=== PATIENT | male | born 1965 | race Caucasian/White ===

== ENCOUNTER 2024-02-13 14:50 | Outpatient (AMB) | payer BC, SELFPAY ==
--- NOTE | 2024-02-13 15:09 | MHC.PC.OV ---
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 Transferring care from [place] ([place]). Medical records have been requested and have not received. 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 HPI Details Patient comes in today to establish care - is a new patient to the practice States that he is transferring over from [place] Patient relates feeling fatigued often lately He denies any headaches or dizziness Relates on and off/sporadic and non-specific chest pains often although he denies any exertional chest pains States that his chest feels congested often and he has been experiencing frequent VILLANUEVA ever since he contracted COVID a few years ago (+) on and off cough; states that he coughs up a lot of whitish phlegm often but his cough does not keep him up at night He used to smoke but quit over 10 years ago No nausea/vomiting, no abdominal pain No change in bowel habits noted He denies any acute urinary symptoms States that he was seen by vascular surgery in [place] for his leg edema and was advised to wear compression stockings to help reduce his lower extremity swelling He's had no recent labs done - thinks that the last time he had labs done was before the COVID pandemic a few years ago He had his screening colonoscopy done back in 2014 and is now due for repeat colonoscopy [facility] Medical History (Updated 02/20/24 @ 04:51 by Karlos Goznales MD) GERD without esophagitis Morbid obesity with BMI of 40.0-44.9, adult Exertional dyspnea Surgical History (Updated 02/13/24 @ 15:51 by Karlos Gonzales MD) Hx of colonoscopy History of release of tendon Family History Sister Substance use disorder Social History Housing: House Alcohol intake: current Alcohol intake frequency: a few times a month Patient Tobacco Use Status: Never used Tobacco e-Cigarette/Vaping Use: Never Used Second Hand Smoke Exposure: No service: No Current occupational status: employed 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 1. Little interest or pleasure in doing things: not at all 2. Feeling down, depressed, or hopeless: not at all 3. Trouble falling or staying asleep, or sleeping too much: not at all 4. Feeling tired or having little energy: not at all 5. Poor appetite or overeating: not at all 6. Feeling bad about yourself - or that you are a failure or have let yourself or your family down: not at all 7. Trouble concentrating on things, such as reading the newspaper or watching television: not at all 8. Moving or speaking so slowly that other people could have noticed. Or the opposite - being so fidgety or restless that you have been moving around a lot more than usual: not at all 9. Thoughts that you would be better off or of hurting yourself in some way: not at all Total score: 0 Depression Screening Interpretation: Negative Depression Screening Done: Yes 38025 - PHQ-9 Billing: Yes Source: Developed by Drs. Aj Galdamez, Mohini Gray, Daniel Madrid and colleagues, with an educational matt from [employer]. Thrive Questionnaire Date Thrive assessed: 02/13/24 I am a: Patient What is your living situation today?: I have a steady place to live Within the past 12 months, did the food you bought not last and you didn't have the money to get more?: Never true Within the past 12 months, did you worry whether your food would run out before you got money to buy more?: Never true Do you have trouble paying for medicines?: No Do you have trouble getting transportation to medical appointments?: No Do you have trouble paying your heating and electricity bill?: Yes Do you have trouble taking care of your child, family member or friend?: No Do you have trouble with day-to-day activities such as bathing, preparing meals, shopping, managing finances, etc.?: No Are you currently unemployed and looking for a job?: No Are you interested in more education?: No Currently or been in a relationship where the following occur: No concerns reported THRIVE Score: 1 AUDIT C Alcohol Use Questionnaire (AUDIT-C) 1. How often do you have a drink containing alcohol?: 2-4 times a month 3. How often do you have six or more drinks on one occasion?: Never Total Score: 2 Score Reviewed/Action Taken: Yes CAROL ANN-7 AMB Questionnaire CAROL ANN-7 Date CAROL ANN - 7 assessed: 02/13/24 Feeling nervous, anxious, or on edge: 0 = Not at all Not being able to stop or control worryin = Not at all Worrying too much about different things: 0 = Not at all Trouble relaxin = Not at all Being so restless that it is hard to sit still: 0 = Not at all Becoming easily annoyed or irritable: 0 = Not at all Feeling afraid as if something awful might happen: 0 = Not at all Total CAROL ANN-7 score (0-4 normal; 5-9 mild; 10-14 moderate; 15-21 severe): 0 Source: Developed by Drs. Aj Galdamez, Mohini Gray, Daniel Madrid and colleagues, with an educational matt from [employer]. Review of Systems Const Denies chills, Reports fatigue, Denies fever(s), Denies headache(s), Denies malaise and Denies weakness Eyes Denies blurry vision, Denies change in vision, Denies irritation and Denies itchy eyes ENT Denies dysphagia, Denies dizziness, Denies otalgia, Denies headache(s), Denies nasal congestion, Denies neck pain, Denies odynophagia and Denies sore throat Card Reports chest pain (on and off), Denies chest pain with activity, Denies rapid heart rate, Denies irregular heart rhythm, Denies palpitations and Reports dyspnea on exertion Resp Denies chest congestion, Reports cough (on and off, coughs up thick whitish phlegm often), Reports dyspnea on exertion and Denies wheezing GI Denies abdominal pain, Denies bloating, Denies constipation, Denies dysphagia, Denies heartburn, Denies diarrhea, Denies nausea, Denies odynophagia and Denies vomiting Denies hematuria, Denies difficulty urinating, Denies dysuria, Denies urinary frequency and Denies urinary urgency Musc Denies back pain, Reports arthralgias (involving multiple joints), Denies joint swelling, Denies muscle weakness and Denies neck pain Skin/Breast Denies change in pigmentation, Denies lesions, Denies rash and Denies unusual bruising Neuro Denies dizziness, Denies headache(s), Denies paresthesias and Denies weakness Endo Reports fatigue and Denies palpitations Rob/Lymph Details: (+) chronic edema of both lower extremities Aller/Immun Denies itchy eyes and Denies wheezing Physical exam (Primary Care) Vital Signs: Last Vital Signs Pulse 79 02/13/24 15:10 BP 138/80 02/13/24 15:10 Pulse Ox 98 02/13/24 15:10 Oxygen Delivery Method Room Air 02/13/24 15:10 BMI result Body Mass Index 40.1 Tobacco/Smoking Status: Tobacco use Status Tobacco use date assessed 02/13/24 02/13/24 15:21 Patient Tobacco Use Status Never used Tobacco 02/13/24 15:21 e-Cigarette/Vaping Use Never Used 02/13/24 15:21 PHQ-9: PHQ-9 Score PHQ-9: Total score 0 02/13/24 15:42 Depression Screening Interpretation: Negative Thrive Assessment: Date of Thrive Assessment Date Thrive assessed 02/13/24 02/13/24 15:21 Currently or been in a relationship where the following occur: No concerns reported Const General: no acute distress, alert and awake Orientation/consciousness: patient oriented x3 HENMT Head: Yes normocephalic and Yes atraumatic Ears: external ears normal, TM's normal bilaterally and EAC's normal General nose exam: No nasal discharge present Face and sinus: Yes normal facial exam and Yes sinuses nontender Teeth and gingiva: dentition normal Throat: Yes posterior oropharynx normal and Yes tonsils normal (no TP congestion) Eyes Eyelids: Yes eyelids normal Conjunctivae: conjunctivae normal Pupils: Equal, round and reactive pupils present EOM: EOMs intact bilaterally Neck Neck: Yes no lymphadenopathy and Yes supple Thyroid: Thyroid normal Resp Auscultation: clear to auscultation bilaterally, no rales, rhonchi (occasional bilaterally) and no wheezes Cardio Rate: regular rate Rhythm: regular rhythm Heart sounds: no murmurs GI Palpation (GI): Soft to palpation, nontender and No hepatosplenomegaly present Auscultation: normal bowel sounds General: Yes no CVA tenderness Back/Spine/Pelvis Back: no CVA tenderness Thoracic/Lumbar Spine: thoracic and lumbar spine normal to inspection Skin Lesions: no lesions Rashes: no rashes Neuro General: patient oriented x3, moves all extremities, no focal motor deficits and CN's II-XI intact bilaterally Cranial nerves: Yes Equal, round and reactive pupils present Cognition (Neuro): normal cognition Gait exam (Neuro): Normal gait present Extrem General: No clubbing, No cyanosis and Yes edema (2+ bilaterally) Assessment and Plan Assessment & Plan (1) Annual physical exam: Code(s): Z00.00 - Encounter for general adult medical examination without abnormal findings Plan: Check labs He is due for repeat colonoscopy but states that he would like to put this off for now and will address this again at his next appointment (2) Exertional dyspnea: Code(s): R06.09 - Other forms of dyspnea Plan: Will send patient for chest x-rays for further evaluation (3) Bilateral lower extremity edema: Code(s): R60.0 - Localized edema Plan: He has reportedly been evaluated by vascular surgery and advised to wear compression stockings to help manage his edema (4) GERD without esophagitis: Code(s): K21.9 - Gastro-esophageal reflux disease without esophagitis Plan: Dietary restrictions discussed Will start patient on Omeprazole 20 mg QD (5) Morbid obesity with BMI of 40.0-44.9, adult: Code(s): E66.01 - Morbid (severe) obesity due to excess calories; Z68.41 - Body mass index [BMI] 40.0-44.9, adult Plan: Discussed diet/exercise as tolerated/lose weight Plan Follow up in 4 months Orders: Orders Lipid Panel 02/13/24 E78.00 - Pure hypercholesterolemia, unspecified, Z00.00 - Encounter for general adult medical examination without abnormal findings Prostate Specific Antigen 02/13/24 N40.0 - Benign prostatic hyperplasia without lower urinary tract symptoms, Z00.00 - Encounter for general adult medical examination without abnormal findings XR chest 2V 02/13/24 R06.09 - Other forms of dyspnea, R09.89 - Other specified symptoms and signs involving the circulatory and respiratory systems Complete Blood Count Auto Diff 02/13/24 D64.9 - Anemia, unspecified, Z00.00 - Encounter for general adult medical examination without abnormal findings Comprehensive [place]. Panel Fast 02/13/24 E78.00 - Pure hypercholesterolemia, unspecified, Z00.00 - Encounter for general adult medical examination without abnormal findings TSH reflex Free T4 02/13/24 E78.00 - Pure hypercholesterolemia, unspecified, Z00.00 - Encounter for general adult medical examination without abnormal findings UA CC w/rflx Micro + Cult 02/13/24 R30.0 - Dysuria, Z00.00 - Encounter for general adult medical examination without abnormal findings Hemoglobin A1c 02/13/24 E11.9 - Type 2 diabetes mellitus without complications, Z00.00 - Encounter for general adult medical examination without abnormal findings Medications: New omeprazole 20 mg PO DAILY 90 tabs 1RF 90 days Coding Level of Care Code New Pt Prev Care 40-64y(21891) Diagnoses Annual physical exam Z00.00 Exertional dyspnea R06.09 Bilateral lower extremity edema R60.0 GERD without esophagitis K21.9 Morbid obesity with BMI of 40.0-44.9, adult E66.01; Z68.41
[2024-02-13 15:10] VITALS: BP 138/80; PULSE 79; O2SAT 98; BMI 40.1
== END 2024-02-13 15:56 | disposition home or self-care (01) ==
PROVIDERS: PCP Internal Medicine; Visit Provider Internal Medicine
DX: Z00.00 Encounter for general adult medical examination without abnormal findings (principal); R06.09 Other forms of dyspnea; R60.0 Localized edema; K21.9 Gastro-esophageal reflux disease without esophagitis
CPT/HCPCS: 99386

== ENCOUNTER 2024-03-05 13:03 | Outpatient (REF) | payer BC, SELFPAY ==
--- NOTE | ~2024-03-05 | XR_ITS ---
EXAMINATION: XR CHEST 2 VIEWS CLINICAL INFORMATION: Excess mucus production. COMPARISON: None. TECHNIQUE: Frontal and lateral views of the chest were obtained. FINDINGS: The heart, great vessels, pulmonary vasculature and mediastinum are normal. The lungs show no focal infiltrate, effusion or pneumothorax. There is mild elevation of the right hemidiaphragm. There is no acute osseous abnormality. XR/XR chest 2V IMPRESSION: No active cardiopulmonary disease. Electronically signed by: Julius Davis MD 04/03/2024 05:31 PM EDT RP
== END 2024-03-05 13:04 | disposition home or self-care (01) ==
LOC: HO.XRAY 13:03
PROVIDERS: PCP Internal Medicine; Visit Provider Internal Medicine
DX: R09.89 Other specified symptoms and signs involving the circulatory and respiratory systems (principal); R06.09 Other forms of dyspnea
CPT/HCPCS: 71046

== ENCOUNTER 2024-03-08 10:28 | Outpatient (REF) | payer BC, SELFPAY ==
[2024-03-08 10:44] LABS: MANUAL DIFF FLAG NO
[2024-03-08 11:47] LABS: Basophils Percent Auto 0.4 % (0-2); Eosinophils Absolute Auto 0.1 X10*3/uL (0.0-0.4); Eosinophils Percent Auto 1.2 % (0-4); Hematocrit 44.2 % (42.0-52.0); Hemoglobin 15.9 g/dl (14.0-18.0); Imm Gran Abs Auto 0.02 X10*3/uL (0.00-0.03); Imm Gran Pct Auto 0.4 % (0.0-0.4); Lymphocytes Absolute Auto 2.3 X10*3/uL (1.2-4.9); Lymphocytes Percent Auto 43.5 % (20-40); Mean Corpuscular Hemoglobin 29.9 pg (27.0-33.0); Mean Corpuscular Volume 83.1 fL (80.0-98.0); Mean Platelet Volume 10.3 fL (9.4-12.4); Monocytes Absolute Auto 0.3 X10*3/uL (0.1-1.2); Monocytes Percent Auto 6.6 % (2-11); Neutrophils Absolute Auto 2.5 x10*3/uL (2.0-8.3); Neutrophils Percent Auto 47.9 % (45-73); Platelet Count 175 X10*3/uL (160-400); Red Blood Count 5.32 X10*6/uL (4.60-5.80); Red Cell Distribution Width 12.1 % (11.0-16.0); White Blood Count 5.2 X10*3/uL (4.8-10.8)
[2024-03-08 11:57] LABS: Appearance Urine Clear; Color Urine Yellow; Glucose Urine UA >=1000 mg/dL (Negative); Leukocyte Esterase Urine Negative (Negative); Nitrite Urine Negative (Negative); UMIC TRIGGER UACC YES; Urine Blood Negative (Negative); Urine Ketones Negative (Negative); Urine Protein Negative (Neg-Trace)
[2024-03-08 12:08] LABS: Estimated Average Glucose 263 mg/dL; Hemoglobin A1c % 10.8 % (<6.0)
[2024-03-08 12:16] LABS: Bacteria Urine None Seen (None Seen); Hyaline Casts Urine 0-2 /LPF (0-2); RBC Urine 0-2 /HPF (0-2); Squamous Epithelial Cell Urine 0-2 /HPF (0-2); WBC Urine 0-5 /HPF (0-5)
[2024-03-08 12:22] LABS: Alanine Aminotransferase 40 U/L (0-40); Albumin Level 3.9 g/dL (3.5-5.0); Alkaline Phosphatase 89 U/L (39-117); Anion Gap 12 (12-20); Aspartate Amino Transferase 24 U/L (5-37); Bilirubin Total 0.5 mg/dL (0.0-1.0); Blood Urea Nitrogen 10 mg/dL (9-16); Calcium 9.2 mg/dL (8.4-10.2); Carbon Dioxide 23 mmol/L (22-29); Chloride 101 mmol/L (96-108); Cholesterol 229 mg/dL (<200); Estimated Glomerular Filt Rate > 60; Glucose Fasting 275 mg/dL (60-99); HDL Cholesterol 35 mg/dL (>40); LDL Cholesterol Calculated 154 mg/dL (<100); Potassium 4.1 mmol/L (3.3-5.1); Sodium 132 mmol/L (135-145); Total Protein 6.7 g/dL (6.5-8.0); Triglycerides 203 mg/dL (<150)
[2024-03-08 12:33] LABS: Prostate Specific Antigen 0.22 ng/mL (<0.05-4.0)
[2024-03-08 12:36] LABS: TSH reflex Free T4 2.69 uIU/mL (0.32-4.0)
== END 2024-03-08 10:29 | disposition home or self-care (01) ==
LOC: HO.LAB 10:28
PROVIDERS: PCP Internal Medicine; Visit Provider Internal Medicine
DX: Z00.00 Encounter for general adult medical examination without abnormal findings (principal); D64.9 Anemia, unspecified; E78.00 Pure hypercholesterolemia, unspecified; N40.0 Benign prostatic hyperplasia without lower urinary tract symptoms; E11.9 Type 2 diabetes mellitus without complications; Z12.5 Encounter for screening for malignant neoplasm of prostate
CPT/HCPCS: 36415; 80053; 80061; 81001; 83036; 84153; 84443; 85025

== ENCOUNTER 2024-06-15 15:47 | Outpatient (AMB) | payer BC, SELFPAY ==
[2024-06-15 16:01] VITALS: BP 140/84; PULSE 88; O2SAT 9; BMI 40.0
--- NOTE | 2024-06-15 16:01 | A.OFFPC_ITS ---
Vital Signs 06/15/24 16:01 Height 5 ft 8.5 in Weight 267 lb 2 oz BMI 40.0 BP 140/84 H Blood Pressure Location Lt brachial Position Sitting Pulse 88 Pulse Source Pulse Oximeter Pulse Oximetry (%) 9 L Oxygen Delivery Method Room Air Intake Visit Reasons: [facility] f[facility]u Route Sales Manager Required: No Accompanied by: Self / Same As Patient Allergies No Known Allergies Allergy (Verified 06/15/24 16:07) Medication List - Last Reconciled 06/15/24 by Karlos Gonzales MD omeprazole 20 mg PO DAILY 90 days Tobacco use date assessed: 02/13/24 Dental Screening Dental Screen Date: 02/13/24 HPI 4mt f/u HPI Details Patient comes in today for his follow up visit States that he feels okay but continues to feel fatigued/tired often He denies any headaches or dizziness Denies any exertional chest pains or increased SOB No nausea//vomiting, no abdominal pain No change in bowel habits noted He would like to know how he did on his labs done a couple of months ago [facility] Medical History (Updated 06/16/24 @ 15:00 by Karlos Gonzales MD) Mixed hyperlipidemia Essential hypertension Diabetes mellitus GERD without esophagitis Morbid obesity with BMI of 40.0-44.9, adult Exertional dyspnea Surgical History Hx of colonoscopy History of release of tendon Family History Sister Substance use disorder Social History Housing: House Alcohol intake: current Alcohol intake frequency: a few times a month Patient Tobacco Use Status: Never used Tobacco e-Cigarette/Vaping Use: Never Used Second Hand Smoke Exposure: No service: No Current occupational status: employed 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 1. Little interest or pleasure in doing things: not at all 2. Feeling down, depressed, or hopeless: not at all 3. Trouble falling or staying asleep, or sleeping too much: not at all 4. Feeling tired or having little energy: not at all 5. Poor appetite or overeating: not at all 6. Feeling bad about yourself - or that you are a failure or have let yourself or your family down: not at all 7. Trouble concentrating on things, such as reading the newspaper or watching t elevision: not at all 8. Moving or speaking so slowly that other people could have noticed. Or the opposite - being so fidgety or restless that you have been moving around a lot more than usual: not at all 9. Thoughts that you would be better off or of hurting yourself in some way: not at all Total score: 0 Depression Screening Interpretation: Negative Depression Screening Done: Yes 89047 - PHQ-9 Billing: Yes Source: Developed by Drs. Aj Galdamez, Mohini Gray, Daniel Madrid and colleagues, with an educational matt from [employer] Thrive Questionnaire Date Thrive assessed: 06/15/24 I am a: Patient What is your living situation today?: I have a steady place to live Within the past 12 months, did the food you bought not last and you didn't have the money to get more?: Never true Within the past 12 months, did you worry whether your food would run out before you got money to buy more?: Never true Do you have trouble paying for medicines?: No Do you have trouble getting transportation to medical appointments?: No Do you have trouble paying your heating and electricity bill?: Yes Do you have trouble taking care of your child, family member or friend?: No Do you have trouble with day-to-day activities such as bathing, preparing meals, shopping, managing finances, etc.?: No Are you currently unemployed and looking for a job?: No Are you interested in more education?: No Currently or been in a relationship where the following occur: No concerns r eported THRIVE Score: 1 AUDIT C Alcohol Use Questionnaire (AUDIT-C) 1. How often do you have a drink containing alcohol?: Monthly or less 2. How many drinks containing alcohol do you have on a typical day when you are drinking?: 1 or 2 3. How often do you have six or more drinks on one occasion?: Less than monthly Total Score: 2 Score Reviewed/Action Taken: Yes CAROL ANN-7 AMB Questionnaire CAROL ANN-7 Date CAROL ANN - 7 assessed: 06/15/24 Feeling nervous, anxious, or on edge: 0 = Not at all Not being able to stop or control worryin = Not at all Worrying too much about different things: 0 = Not at all Trouble relaxin = Not at all Being so restless that it is hard to sit still: 0 = Not at all Becoming easily annoyed or irritable: 0 = Not at all Feeling afraid as if something awful might happen: 0 = Not at all Total CAROL ANN-7 score (0-4 normal; 5-9 mild; 10-14 moderate; 15-21 severe): 0 Source: Developed by Drs. Aj Galdamez, Mohini Gray, Daniel Madrid and colleagues, with an educational matt from [employer] CAROL ANN-7 Assessment Billing CAROL ANN-7 Assessment Tool: CAROL ANN-7 Assessment 72120 Review of Systems Const Denies chills, Reports fatigue, Denies fever(s) and Denies headache(s) ENT Denies dysphagia, Denies dizziness, Denies otalgia, Denies headache(s), Denies neck pain, Denies odynophagia and Denies sore throat Card Denies chest pain, Denies palpitations and Denies dyspnea Resp Denies chest congestion, Denies cough and Denies dyspnea GI Denies abdominal pain, Denies constipation, Denies dysphagia, Denies heartburn, Denies diarrhea, Denies nausea, Denies odynophagia and Denies vomiting Denies dysuria, Reports nocturia and Reports urinary frequency Musc Denies back pain and Denies neck pain Skin/Breast Denies rash Neuro Denies dizziness and Denies headache(s) Endo Reports fatigue, Reports polydipsia, Reports polyuria and Denies palpitations Physical exam (Primary Care) Vital Signs: Last Vital Signs Pulse 88 06/15/24 16:01 BP 140/84 H 06/15/24 16:01 Pulse Ox 9 L 06/15/24 16:01 Oxygen Delivery Method Room Air 06/15/24 16:01 BMI result Body Mass Index 40.0 Tobacco/Smoking Status: Tobacco use Status Tobacco use date assessed 02/13/24 06/15/24 16:02 Patient Tobacco Use Status Never used Tobacco 06/15/24 16:02 e-Cigarette/Vaping Use Never Used 06/15/24 16:02 PHQ-9: PHQ-9 Score PHQ-9: Total score 0 06/15/24 16:22 Depression Screening Interpretation: Negative Thrive Assessment: Date of Thrive Assessment Date Thrive assessed 06/15/24 06/15/24 16:03 Currently or been in a relationship where the following occur: No concerns reported Const General: no acute distress and alert HENMT Ears: TM's normal bilaterally and EAC's normal Throat: Yes posterior oropharynx normal and Yes tonsils normal (no TP congestion) Neck Neck: Yes no lymphadenopathy and Yes supple Thyroid: Thyroid normal Resp Auscultation: clear to auscultation bilaterally, no rales and no wheezes Cardio Rate: regular rate Rhythm: regular rhythm Heart sounds: no murmurs GI Palpation (GI): Soft to palpation and nontender Auscultation: normal bowel sounds General: Yes no CVA tenderness Back/Spine/Pelvis Back: no CVA tenderness Thoracic/Lumbar Spine: thoracic and lumbar spine normal to inspection Skin Rashes: no rashes Extrem General: Yes no clubbing, cyanosis or edema Office Procedures Flu Questionnaire Does the patient have a severe egg allergy?: No Results AMB Hemoglobin A1c AMB Hemoglobin A1c 11.2 % Last Edit by MONTRELL Cr on 06/15/24 16:22 Immunizations Fluarix Triv [id number] (PF) 45 mcg (15 mcg x 3)/0.5 mL IM syringe Performing Provider: Karlos Gonzales MD [facility] Documented (not given) by: MONTRELL Cr on 06/15/24 16:02 Reason Not Given: Patient Refused Results Reviewed Results Reviewed: Laboratory Last Values Hgb A1c (Clinic) 11.2 % (4.0-6.0) H 06/15/24 16:18 Laboratory Tests 03/08/24 03/08/24 10:43 10:52 WBC 5.2 Hgb 15.9 Hct 44.2 Plt Count 175 Sodium 132 L Potassium 4.1 Creatinine 0.88 Estimated GFR > 60 Fasting Glucose 275 H Hemoglobin A1c % 10.8 H Calcium 9.2 AST 24 ALT 40 Triglycerides 203 H Cholesterol 229 H LDL Cholesterol, Calc 154 H HDL Cholesterol 35 L Prostate Specific Ag 0.22 TSH 2.69 Urine Protein Negative Urine Glucose (UA) >=1000 H Urine Blood Negative Urine Nitrite Negative Ur Leukocyte Esterase Negative Coding Level of Care Code Est Pt Level 4 (18941) Complex EM visit Add On G2211 Diagnoses Type 2 diabetes mellitus with hyperglycemia, without long-term current use of insulin E11.65 Diabetes mellitus type: type 2 Diabetes mellitus [facility] insulin use: without intermediate teacher use Diabetes mellitus complication status: with hyperglycemia Essential hypertension I10 Mixed hyperlipidemia E78.2 GERD without esophagitis K21.9 Morbid obesity with BMI of 40.0-44.9, adult E66.01; Z68.41 Additional Codes CAROL ANN-7 Assessment Billing - CAROL ANN-7 Assessment Tool: CAROL ANN-7 Assessment 85218 ([id number]) PHQ-9 - 16262 - PHQ-9 Billing: Yes ([id number]) Assessment & Plan Assessment & Plan (1) Diabetes mellitus: Code(s): E11.9 - Type 2 diabetes mellitus without complications Category: Medical Qualifiers: Diabetes mellitus type: type 2 Diabetes mellitus intermediate teacher insulin use: without [facility] use Diabetes mellitus complication status: with hyperglycemia Qualified Code(s): E11.65 - Type 2 diabetes mellitus with hyperglycemia Plan: His in-office HgbA1c today is at 11.2% (HgbA1c was at 10.8% on his labs done back in February 2024) - goal is <7.0% Have advised patient that both of his HgbA1c over the past few months are consistent with uncontrolled diabetes Discussed diabetic diet Will start patient on Metformin 500 mg BID (2) Essential hypertension: Code(s): I10 - Essential (primary) hypertension Category: Medical Plan: Have advised patient also that his blood pressure readings are consistent with hypertension Discussed low sodium diet - goal is systolic BP of 120 mm or less Will start him for now on Lisinopril 2.5 mg QD, both for his blood pressure and for renoprotection (3) Mixed hyperlipidemia: Code(s): E78.2 - Mixed hyperlipidemia Category: Medical Plan: Results of his labs done back in February 2024 reviewed and discussed with patient - have advised patient that his cholesterol levels are also elevated, likely related to his diabetes Discussed low cholesterol diet Will start him on Atorvastatin 10 mg QD Will recheck his labs and fasting lipids in 3 months for follow up (4) GERD without esophagitis: Code(s): K21.9 - Gastro-esophageal reflux disease without esophagitis Category: Medical Plan: Dietary restrictions reinforced States that his insurance did not cover his previous Rx of Omeprazole, which was the delayed-release, disintegrating tablet formulation Will try switching him over to the regular formulation of Omeprazole 20 mg QD (5) Morbid obesity with BMI of 40.0-44.9, adult: Code(s): E66.01 - Morbid (severe) obesity due to excess calories; Z68.41 - Body mass index [BMI] 40.0-44.9, adult Category: Medical Plan: Reinforced diet/exercise as tolerated/lose weight Plan Follow up in 3 months Orders: Orders Influenza [id number] Immunization 06/15/24 Z23 - Encounter for immunization AMB Hemoglobin A1c 06/15/24 Z13.1 - Encounter for screening for diabetes mellitus Comprehensive [place]. Panel Fast 3 Months E78.00 - Pure hypercholesterolemia, unspecified Lipid Panel 3 Months E78.00 - Pure hypercholesterolemia, unspecified Hemoglobin A1c 3 Months E11.9 - Type 2 diabetes mellitus without complications Microalbumin, Random (w Creat) 3 Months E11.9 - Type 2 diabetes mellitus without complications Complete Blood Count Auto Diff 3 Months D64.9 - Anemia, unspecified UA CC w/rflx Micro + Cult 3 Months R30.0 - Dysuria Vitamin D 25-OH Total 3 Months E55.9 - Vitamin D deficiency, unspecified Medications: New omeprazole 20 mg PO DAILY 90 days 90 caps 1RF lisinopril 2.5 mg PO DAILY 90 days 90 tabs 0RF atorvastatin 10 mg PO BEDTIME 90 days 90 tabs 1RF metformin 500 mg PO BID 30 days 60 tabs 3RF Discontinued omeprazole Discontinued Reason: Doctor's Order 20 mg PO DAILY 90 days 90 tabs 1RF
== END 2024-06-15 16:28 | disposition home or self-care (01) ==
PROVIDERS: PCP Internal Medicine; Visit Provider Internal Medicine
DX: E11.65 Type 2 diabetes mellitus with hyperglycemia (principal); I10 Essential (primary) hypertension; E66.01 Morbid (severe) obesity due to excess calories; Z68.41 Body mass index [BMI] 40.0-44.9, adult; E78.2 Mixed hyperlipidemia; K21.9 Gastro-esophageal reflux disease without esophagitis

== ENCOUNTER → 2024-06-15 15:47 | Outpatient (BNVA) | payer BC, SELFPAY | PROVIDERS: PCP Internal Medicine; Visit Provider Internal Medicine | DX: E11.65 Type 2 diabetes mellitus with hyperglycemia (principal); I10 Essential (primary) hypertension; E78.2 Mixed hyperlipidemia; K21.9 Gastro-esophageal reflux disease without esophagitis; E66.01 Morbid (severe) obesity due to excess calories; Z68.41 Body mass index [BMI] 40.0-44.9, adult | CPT/HCPCS: 83036; 90471; 96127 ==

== ENCOUNTER 2024-09-19 08:34 | Outpatient (REF) | payer BC, SELFPAY ==
[2024-09-19 09:05] LABS: MANUAL DIFF FLAG NO
[2024-09-19 09:13] LABS: Basophils Percent Auto 0.2 % (0-2); Eosinophils Percent Auto 0.8 % (0-4); Hematocrit 42.4 % (42.0-52.0); Hemoglobin 14.5 g/dl (14.0-18.0); Imm Gran Abs Auto 0.01 X10*3/uL (0.00-0.03); Imm Gran Pct Auto 0.2 % (0.0-0.4); Lymphocytes Absolute Auto 2.6 X10*3/uL (1.2-4.9); Lymphocytes Percent Auto 49.5 % (20-40); Mean Corpuscular HGB Conc 34.2 g/dl (31.0-36.0); Mean Corpuscular Hemoglobin 29.4 pg (27.0-33.0); Mean Corpuscular Volume 85.8 fL (80.0-98.0); Mean Platelet Volume 10.2 fL (9.4-12.4); Monocytes Absolute Auto 0.4 X10*3/uL (0.1-1.2); Monocytes Percent Auto 8.2 % (2-11); Neutrophils Absolute Auto 2.2 x10*3/uL (2.0-8.3); Neutrophils Percent Auto 41.1 % (45-73); Platelet Count 136 X10*3/uL (160-400); Red Blood Count 4.94 X10*6/uL (4.60-5.80); Red Cell Distribution Width 12.5 % (11.0-16.0); White Blood Count 5.3 X10*3/uL (4.8-10.8)
[2024-09-19 09:17] LABS: Estimated Average Glucose 166 mg/dL; Hemoglobin A1c % 7.4 % (<6.0); Total Hemoglobin (HGBA1C) 3796.3138 umol/L
[2024-09-19 09:39] LABS: Alanine Aminotransferase 23 U/L (0-40); Albumin Level 4.1 g/dL (3.5-5.0); Alkaline Phosphatase 62 U/L (39-117); Anion Gap 11 (12-20); Aspartate Amino Transferase 19 U/L (5-37); Bilirubin Total 0.4 mg/dL (0.0-1.0); Blood Urea Nitrogen 13 mg/dL (9-16); Calcium 9.3 mg/dL (8.4-10.2); Carbon Dioxide 29 mmol/L (22-29); Chloride 103 mmol/L (96-108); Cholesterol 180 mg/dL (<200); Estimated Glomerular Filt Rate > 60; Glucose Fasting 153 mg/dL (60-99); HDL Cholesterol 35 mg/dL (>40); LDL Cholesterol Calculated 111 mg/dL (<100); Potassium 4.2 mmol/L (3.3-5.1); Sodium 139 mmol/L (135-145); Total Protein 7.1 g/dL (6.5-8.0); Triglycerides 173 mg/dL (<150)
[2024-09-19 09:47] LABS: Appearance Urine Clear; Color Urine Yellow; Glucose Urine UA Negative (Negative); Leukocyte Esterase Urine Negative (Negative); Nitrite Urine Negative (Negative); PH 7.5 (5.0-9.0); Urine Blood Negative (Negative); Urine Ketones Negative (Negative); Urine Protein Negative (Neg-Trace)
[2024-09-19 10:56] LABS: Creatinine Urine 54.46 mg/dL; Microalbumin Urine < 5.0 mg/L
== END 2024-09-19 08:35 | disposition home or self-care (01) ==
LOC: HO.LAB 08:34
PROVIDERS: PCP Internal Medicine; Visit Provider Internal Medicine
DX: Z00.00 Encounter for general adult medical examination without abnormal findings (principal); R30.0 Dysuria; E78.00 Pure hypercholesterolemia, unspecified; E11.9 Type 2 diabetes mellitus without complications; D64.9 Anemia, unspecified; E55.9 Vitamin D deficiency, unspecified
CPT/HCPCS: 36415; 80053; 80061; 81003; 82043; 82306; 82570; 83036; 85025

== ENCOUNTER 2024-12-13 09:32 | Outpatient (AMB) | payer BC, SELFPAY ==
[2024-12-13 09:45] VITALS: BP 126/80; PULSE 82; O2SAT 97; BMI 38.4
--- NOTE | 2024-12-13 09:45 | MHC.PC.OV ---
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 Insurance Required: No Accompanied by: Self / Same As Patient Allergies No Known Allergies Allergy (Verified 12/13/24 10:10) Medication List - Last Reconciled 12/13/24 by Karlos Gonzales MD atorvastatin 10 mg PO BEDTIME 90 days lisinopril 2.5 mg PO DAILY 90 days metformin 500 mg PO BID 30 days omeprazole 20 mg PO DAILY 90 days Tobacco use date assessed: 12/13/24 Dental Screening Dental Screen Date: 12/13/24 Did you have a dental visit in the last 12 months?: Yes Did you have a dental problem in the last 6 months where you did not have access to dental care?: No Was dental information given to patient?: Patient has dentist HPI DM, Hyperlipidemia HPI Details Patient comes in today for his follow up visit States that he feels okay He denies any headaches or dizziness Denies any exertional chest pains or increased SOB No nausea//vomiting, no abdominal pain No change in bowel habits noted Needs a few of his Rx refilled today He had his follow up labs done back in August 2024 but missed his appointment then and was rescheduled to today [facility] Medical History Mixed hyperlipidemia Essential hypertension Diabetes mellitus GERD without esophagitis Morbid obesity with BMI of 40.0-44.9, adult Exertional dyspnea Surgical History Hx of colonoscopy History of release of tendon Family History Sister Substance use disorder Social History Housing: House Alcohol intake: current Alcohol intake frequency: a few times a month Patient Tobacco Use Status: Never used Tobacco e-Cigarette/Vaping Use: Never Used Second Hand Smoke Exposure: No service: No Current occupational status: employed 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 1. Little interest or pleasure in doing things: not at all 2. Feeling down, depressed, or hopeless: not at all 3. Trouble falling or staying asleep, or sleeping too much: not at all 4. Feeling tired or having little energy: nearly every day 5. Poor appetite or overeating: not at all 6. Feeling bad about yourself - or that you are a failure or have let yourself or your family down: not at all 7. Trouble concentrating on things, such as reading the newspaper or watching television: not at all 8. Moving or speaking so slowly that other people could have noticed. Or the opposite - being so fidgety or restless that you have been moving around a lot more than usual: not at all 9. Thoughts that you would be better off or of hurting yourself in some way: not at all Total score: 3 Depression Screening Interpretation: Positive Depression Screening Follow-up: Follow-up Visit Requested Depression Screening Done: Yes 78216 - PHQ-9 Billing: Yes Source: Developed by Drs. Aj Galdamez, Mohini Gray, Daniel Madrid and colleagues, with an educational matt from [employer]. Thrive Questionnaire Date Thrive assessed: 12/13/24 I am a: Patient What is your living situation today?: I have a steady place to live Within the past 12 months, did the food you bought not last and you didn't have the money to get more?: Never true Within the past 12 months, did you worry whether your food would run out before you got money to buy more?: Never true Do you have trouble paying for medicines?: I choose not to answer this question Do you have trouble getting transportation to medical appointments?: No Do you have trouble paying your heating and electricity bill?: Yes Do you have trouble taking care of your child, family member or friend?: No Do you have trouble with day-to-day activities such as bathing, preparing meals, shopping, managing finances, etc.?: No Are you currently unemployed and looking for a job?: No Are you interested in more education?: No Please select the resources that you would like help with: None Currently or been in a relationship where the following occur: No concerns reported THRIVE Score: 1 AUDIT C Alcohol Use Questionnaire (AUDIT-C) 1. How often do you have a drink containing alcohol?: 2-4 times a month 2. How many drinks containing alcohol do you have on a typical day when you are drinking?: 3 or 4 3. How often do you have six or more drinks on one occasion?: Less than monthly Total Score: 4 Score Reviewed/Action Taken: Yes CAROL ANN-7 AMB Questionnaire CAROL ANN-7 Date CAROL ANN - 7 assessed: 12/13/24 Feeling nervous, anxious, or on edge: 0 = Not at all Not being able to stop or control worryin = Not at all Worrying too much about different things: 0 = Not at all Trouble relaxin = Not at all Being so restless that it is hard to sit still: 0 = Not at all Becoming easily annoyed or irritable: 1 = Several days Feeling afraid as if something awful might happen: 0 = Not at all Total CAROL ANN-7 score (0-4 normal; 5-9 mild; 10-14 moderate; 15-21 severe): 1 Source: Developed by Drs. Aj Galdamez, Mohini Gray, Daniel Madrid and colleagues, with an educational matt from [employer]. Review of Systems Const Denies chills, Reports fatigue, Denies fever(s) and Denies headache(s) ENT Denies dysphagia, Denies dizziness, Denies otalgia, Denies headache(s), Denies neck pain, Denies odynophagia and Denies sore throat Card Denies chest pain, Denies palpitations and Denies dyspnea Resp Denies chest congestion, Denies cough and Denies dyspnea GI Denies abdominal pain, Denies constipation, Denies dysphagia, Denies heartburn, Denies diarrhea, Denies nausea, Denies odynophagia and Denies vomiting Denies difficulty urinating, Denies dysuria, Reports nocturia and Reports urinary frequency Musc Denies back pain and Denies neck pain Skin/Breast Denies rash Neuro Denies dizziness and Denies headache(s) Endo Reports fatigue, Reports polydipsia, Reports polyuria and Denies palpitations Physical exam (Primary Care) Vital Signs: Last Vital Signs Pulse 82 12/13/24 09:45 BP 126/80 12/13/24 09:45 Pulse Ox 97 12/13/24 09:45 Oxygen Delivery Method Room Air 12/13/24 09:45 BMI result Body Mass Index 38.4 Tobacco/Smoking Status: Tobacco use Status Tobacco use date assessed 12/13/24 12/13/24 09:49 Patient Tobacco Use Status Never used Tobacco 12/13/24 09:49 e-Cigarette/Vaping Use Never Used 12/13/24 09:49 PHQ-9: PHQ-9 Score PHQ-9: Total score 3 12/13/24 10:15 Depression Screening Interpretation: Positive Depression Screening Follow-up: Follow-up Visit Requested Thrive Assessment: Date of Thrive Assessment Date Thrive assessed 12/13/24 12/13/24 09:49 Currently or been in a relationship where the following occur: No concerns reported Const General: no acute distress and alert HENMT Ears: TM's normal bilaterally and EAC's normal Throat: Yes posterior oropharynx normal and Yes tonsils normal (no TP congestion) Neck Neck: Yes supple and No lymphadenopathy Thyroid: Thyroid normal Resp Auscultation: clear to auscultation bilaterally, no rales and no wheezes Cardio Rate: regular rate Rhythm: regular rhythm Heart sounds: no murmurs GI Palpation (GI): Soft to palpation and nontender Auscultation: normal bowel sounds General: Yes no CVA tenderness Back/Spine/Pelvis Back: no CVA tenderness Thoracic/Lumbar Spine: thoracic and lumbar spine normal to inspection Skin Rashes: no rashes Extrem General: Yes no clubbing, cyanosis or edema Results AMB Hemoglobin A1c AMB Hemoglobin A1c 8.1 % Last Edit by TYLER Inman on 12/13/24 10:11 Results Reviewed Results Reviewed: Laboratory Last Values Hgb A1c (Clinic) 8.1 % (4.0-6.0) H 12/13/24 10:10 Laboratory Tests 03/08/24 06/15/24 09/19/24 10:43 16:18 08:52 WBC Hgb Hct Plt Count Sodium Potassium Creatinine Estimated GFR Fasting Glucose Hgb A1c (Clinic) 11.2 H Hemoglobin A1c % Calcium AST ALT Triglycerides Cholesterol LDL Cholesterol, Calc HDL Cholesterol 25-OH Vitamin D Total TSH 2.69 Ur Specific [place] 1.010 Urine Protein Negative Urine Glucose (UA) Negative Urine Blood Negative Urine Nitrite Negative Ur Leukocyte Esterase Negative 09/19/24 09:03 WBC 5.3 Hgb 14.5 Hct 42.4 Plt Count 136 L Sodium 139 Potassium 4.2 Creatinine 0.81 Estimated GFR > 60 Fasting Glucose 153 H Hgb A1c (Clinic) Hemoglobin A1c % 7.4 H Calcium 9.3 AST 19 ALT 23 Triglycerides 173 H Cholesterol 180 LDL Cholesterol, Calc 111 H HDL Cholesterol 35 L 25-OH Vitamin D Total 23.0 L TSH Ur Specific [place] Urine Protein Urine Glucose (UA) Urine Blood Urine Nitrite Ur Leukocyte Esterase Coding Level of Care Code Est Pt Level 4 (06032) Complex EM visit Add On G2211 Diagnoses Type 2 diabetes mellitus with hyperglycemia, without long-term current use of insulin E11.65 Diabetes mellitus complication status: with hyperglycemia Diabetes mellitus senior living insulin use: without intermission coordinator use Diabetes mellitus type: type 2 Essential hypertension I10 Mixed hyperlipidemia E78.2 GERD without esophagitis K21.9 Morbid obesity with BMI of 40.0-44.9, adult E66.01; Z68.41 Additional Codes PHQ-9 - 60957 - PHQ-9 Billing: Yes ([id number]) Assessment & Plan Assessment & Plan (1) Diabetes mellitus: Code(s): E11.9 - Type 2 diabetes mellitus without complications Category: Medical Qualifiers: Diabetes mellitus complication status: with hyperglycemia Diabetes mellitus senior living insulin use: without senior living use Diabetes mellitus type: type 2 Qualified Code(s): E11.65 - Type 2 diabetes mellitus with hyperglycemia Plan: His in-office HgbA1c today is at 8.1% (HgbA1c was at 7.4% back in August 2024 and in-office HgbA1c at his last visit here in May 2024 was at 11.2%) - goal is at least <7.0% Reinforced diabetic diet - patient admitted to poor compliance with his diet back in the month of September 2024 but states that he is trying to get himself back on track currently Continue Metformin 500 mg BID for now (2) Essential hypertension: Code(s): I10 - Essential (primary) hypertension Category: Medical Plan: Reinforced low sodium diet - goal is systolic BP of 120 mm or less Continue Lisinopril 2.5 mg QD, both for his blood pressure and for renoprotection - Rx refilled (3) Mixed hyperlipidemia: Code(s): E78.2 - Mixed hyperlipidemia Category: Medical Plan: Results of his labs done back in August 2024 reviewed and discussed with patient - have advised patient that his cholesterol levels back in August 2024 have improved significantly from previous Reinforced low cholesterol diet Continue Atorvastatin 10 mg QD Will recheck his labs and fasting lipids in 3 months for follow up (4) GERD without esophagitis: Code(s): K21.9 - Gastro-esophageal reflux disease without esophagitis Category: Medical Plan: Dietary restrictions reinforced Continue Omeprazole 20 mg QD (5) Morbid obesity with BMI of 40.0-44.9, adult: Code(s): E66.01 - Morbid (severe) obesity due to excess calories; Z68.41 - Body mass index [BMI] 40.0-44.9, adult Category: Medical Plan: Reinforced diet/exercise as tolerated/lose weight - he has been able to lose at least 10 pounds since his last visit Plan Follow up in 3 months Orders: Orders Complete Blood Count Auto Diff 3 Months D64.9 - Anemia, unspecified Hemoglobin A1c 3 Months E11.9 - Type 2 diabetes mellitus without complications UA CC w/rflx Micro + Cult 3 Months R30.0 - Dysuria Vitamin D 25-OH Total 3 Months E55.9 - Vitamin D deficiency, unspecified AMB Hemoglobin A1c Today Z13.9 - Encounter for screening, unspecified Comprehensive [place]. Panel Fast 3 Months E78.00 - Pure hypercholesterolemia, unspecified Lipid Panel 3 Months E78.00 - Pure hypercholesterolemia, unspecified Microalbumin, Random (w Creat) 3 Months E11.9 - Type 2 diabetes mellitus without complications Medications: Refilled atorvastatin 10 mg PO BEDTIME 90 days 90 tabs 1RF lisinopril 2.5 mg PO DAILY 90 days 90 tabs 1RF omeprazole 20 mg PO DAILY 90 days 90 caps 1RF
== END 2024-12-13 10:23 | disposition home or self-care (01) ==
LOC: HO.HMCH 09:33
PROVIDERS: PCP Internal Medicine; Visit Provider Internal Medicine
DX: E11.65 Type 2 diabetes mellitus with hyperglycemia (principal); I10 Essential (primary) hypertension; E66.01 Morbid (severe) obesity due to excess calories; Z68.41 Body mass index [BMI] 40.0-44.9, adult; E78.2 Mixed hyperlipidemia; K21.9 Gastro-esophageal reflux disease without esophagitis

== ENCOUNTER → 2024-12-13 09:32 | Outpatient (BNVA) | payer BC, SELFPAY | PROVIDERS: PCP Internal Medicine; Visit Provider Internal Medicine | DX: E11.65 Type 2 diabetes mellitus with hyperglycemia (principal); I10 Essential (primary) hypertension; E78.2 Mixed hyperlipidemia; K21.9 Gastro-esophageal reflux disease without esophagitis; E66.01 Morbid (severe) obesity due to excess calories; Z68.41 Body mass index [BMI] 40.0-44.9, adult; Z79.84 Long term (current) use of oral hypoglycemic drugs; Z79.899 Other long term (current) drug therapy; Z13.30 Encounter for screening examination for mental health and behavioral disorders, unspecified | CPT/HCPCS: 83036; 96127 ==

== ENCOUNTER 2025-04-02 14:50 | Outpatient (REF) | payer BC, SELFPAY ==
--- NOTE | ~2025-04-02 | XR_ITS ---
Exam: XR HAND 2 VIEWS BILATERAL, bilateral hand x-rays TECHNIQUE: AP, lateral, and oblique views upper extremity, bilateral hands INDICATION: M79.641 - Pain in right hand COMPARISON: None available. FINDINGS: RIGHT HAND: Mild degenerative cystic changes are evident at the IP joints of the second and third digits and PIP joint of third digit. There are small marginal osteophytes involving the second, third, and fourth DIP joints, second and third PIP joints, and IP joint of thumb. Mild degenerative cystic change and small marginal osteophytes are present at the third greater than second MCP joint. Chondrocalcinosis is visible in the first MCP joint LEFT HAND: Small marginal osteophytes are evident at the second DIP joint and the second and third PIP joints and second MCP joint Degenerative cystic changes noted in the distal scaphoid. XR/XR Hand Agus 2V IMPRESSION: Right hand: Mild osteoarthritis. The pattern of involvement favors CPPD arthropathy. Left hand: Very minimal osteoarthritis. Electronically signed by: Brodie Anguiano MD 04/02/2025 05:36 PM EDT
== END 2025-04-02 14:51 | disposition home or self-care (01) ==
LOC: HO.XRAY 14:50
PROVIDERS: PCP Internal Medicine
DX: M79.641 Pain in right hand (principal); M79.642 Pain in left hand; R29.898 Other symptoms and signs involving the musculoskeletal system; L25.5 Unspecified contact dermatitis due to plants, except food; E11.65 Type 2 diabetes mellitus with hyperglycemia
CPT/HCPCS: 73120; 83036; 96127

== ENCOUNTER 2025-04-02 14:50 | Outpatient (AMB) | payer BC, SELFPAY ==
--- NOTE | 2025-04-02 14:53 | A.OFFPC_ITS ---
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 Accompanied by: Self / Same As Patient Allergies No Known Allergies Allergy (Verified 04/02/25 15:07) Medication List - Last Reconciled 04/02/25 by AYAN Sanders atorvastatin 10 mg PO BEDTIME 90 days lisinopril 2.5 mg PO DAILY 90 days metformin 500 mg PO BID 30 days omeprazole 20 mg PO DAILY 90 days Tobacco use date assessed: 04/02/25 Dental Screening Dental Screen Date: 04/02/25 Did you have a dental visit in the last 12 months?: Yes Did you have a dental problem in the last 6 months where you did not have access to dental care?: No Was dental information given to patient?: Patient has dentist HPI rash and b/l hand weakness HPI Details The patient is a 59-year-old male presenting for evaluation for rash and bilateral hand weakness/pain Patient reports that a month ago he was playing baseball and had to go get the ball from the bushes Reports that he developed itchy rashes to his legs that spread to his arms and stomach areas The rashes are fading at this time but still remain itchy Patient reports bilateral hand weakness and pain. Reports that the pain isn't severe but the weakness and fine motor skills difficulty have been more concerning. Patient reports difficulty at times opening his hands from a close in position. Discussed with patient that this could possibly be an early sign of Dupuytren's but it could also be arthritis. The patient has a history of diabetes. A1c was done in office today 8.5%. Showing an increased since last checked. The patient is on metformin 500 mg b.i.d.. We will increase this the 1000 mg b.i.d. He already has a follow appointment with Dr. Gonzales on 04/19/25. He states that he was already warned that if the A1C continues to increase, the metformin dose would be increased to better control his diabetes. 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 1. Little interest or pleasure in doing things: not at all 2. Feeling down, depressed, or hopeless: not at all 3. Trouble falling or staying asleep, or sleeping too much: not at all 4. Feeling tired or having little energy: nearly every day 5. Poor appetite or overeating: not at all 6. Feeling bad about yourself - or that you are a failure or have let yourself or your family down: not at all 7. Trouble concentrating on things, such as reading the newspaper or watching television: not at all 8. Moving or speaking so slowly that other people could have noticed. Or the opposite - being so fidgety or restless that you have been moving around a lot more than usual: not at all 9. Thoughts that you would be better off or of hurting yourself in some way: not at all Total score: 3 Depression Screening Interpretation: Positive Depression Screening Follow-up: Follow-up Visit Requested Depression Screening Done: Yes Source: Developed by Drs. Aj Galdamez, Mohini Gray, Daniel Madrid and colleagues, with an educational matt from [employer]. Thrive Questionnaire Date Thrive assessed: 04/02/25 I am a: Patient What is your living situation today?: I have a steady place to live Within the past 12 months, did the food you bought not last and you didn't have the money to get more?: Never true Within the past 12 months, did you worry whether your food would run out before you got money to buy more?: Never true Do you have trouble paying for medicines?: I choose not to answer this question Do you have trouble getting transportation to medical appointments?: No Do you have trouble paying your heating and electricity bill?: Yes Do you have trouble taking care of your child, family member or friend?: No Do you have trouble with day-to-day activities such as bathing, preparing meals, shopping, managing finances, etc.?: No Are you currently unemployed and looking for a job?: No Are you interested in more education?: No Please select the resources that you would like help with: None Currently or been in a relationship where the following occur: No concerns reported THRIVE Score: 1 AUDIT C Alcohol Use Questionnaire (AUDIT-C) 1. How often do you have a drink containing alcohol?: 2-4 times a month 2. How many drinks containing alcohol do you have on a typical day when you are drinking?: 3 or 4 3. How often do you have six or more drinks on one occasion?: Less than monthly Total Score: 4 Score Reviewed/Action Taken: Yes CAROL ANN-7 AMB Questionnaire CAROL ANN-7 Date CAROL ANN - 7 assessed: 04/02/25 Feeling nervous, anxious, or on edge: 0 = Not at all Not being able to stop or control worryin = Not at all Worrying too much about different things: 0 = Not at all Trouble relaxin = Not at all Being so restless that it is hard to sit still: 0 = Not at all Becoming easily annoyed or irritable: 1 = Several days Feeling afraid as if something awful might happen: 0 = Not at all Total CAROL ANN-7 score (0-4 normal; 5-9 mild; 10-14 moderate; 15-21 severe): 1 Source: Developed by Drs. Aj Galdamez, Mohini Gray, Daniel Madrid and colleagues, with an educational matt from [employer]. Review of Systems Const Denies body aches, Denies chills, Denies fever(s), Denies headache(s) and Denies poor appetite Eyes Reports no additional complaints ENT Denies dysphagia, Denies dizziness, Denies headache(s) and Denies odynophagia Card Denies chest pain, Denies syncope, Denies edema, Denies irregular heart rhythm, Denies lightheadedness and Denies dyspnea Resp Denies cough and Denies dyspnea GI Denies abdominal pain, Denies constipation, Denies dysphagia, Denies diarrhea, Denies nausea, Denies odynophagia and Denies vomiting Reports no additional complaints Musc Reports arthralgias (finger joints on bilateral hands), Reports muscle weakness (hands) and Reports stiffness (hands associated with mild pain) Skin/Breast Reports system reviewed and no additional complaints, except as documented Neuro Denies dizziness, Denies syncope and Denies headache(s) Psych Reports no additional complaints Physical exam (Primary Care) Vital Signs: Last Vital Signs Temp 96.9 F 04/02/25 14:54 Pulse 96 04/02/25 14:54 Resp 18 04/02/25 14:54 BP 140/74 H 04/02/25 14:54 Pulse Ox 96 04/02/25 14:54 Oxygen Delivery Method Room Air 04/02/25 14:54 BMI result Body Mass Index 39.1 Tobacco/Smoking Status: Tobacco use Status Tobacco use date assessed 04/02/25 04/02/25 15:01 Patient Tobacco Use Status Never used Tobacco 04/02/25 15:01 e-Cigarette/Vaping Use Never Used 04/02/25 15:01 PHQ-9: PHQ-9 Score PHQ-9: Total score 3 04/02/25 15:20 Depression Screening Interpretation: Positive Depression Screening Follow-up: Follow-up Visit Requested Thrive Assessment: Date of Thrive Assessment Date Thrive assessed 04/02/25 04/02/25 15:01 Currently or been in a relationship where the following occur: No concerns reported Const General: cooperative, healthy appearing, comfortable and no acute distress Orientation/consciousness: patient oriented x3 HENMT Head: Yes normocephalic Ears: hearing grossly normal bilaterally General nose exam: Normal external nose present Eyes General: appearance normal, both eyes and all related structures Conjunctivae: conjunctivae normal Neck Neck: Yes full ROM and Yes no lymphadenopathy Resp Effort & Inspection: normal respiratory effort Auscultation: clear to auscultation bilaterally, no crackles, no rales, no rhonchi and no wheezes Cardio Rate: regular rate Rhythm: regular rhythm Skin General skin exam: no rashes or lesions noted Neuro General: patient oriented x3 Gait exam (Neuro): Normal gait present Extrem General: Yes normal to inspection, Yes full ROM and No edema Right upper extremity: Extremity exam: right hand Details: normal capillary refill and neuromotor exam normal Details: wrist extension normal, thumb opposition normal, thumb IP flexion normal, thumb ADduction normal and fingers 2-5 ABduction normal; no tenderness and no swelling Left upper extremity: hand Details: normal capillary refill and neuromotor exam normal Details: wrist extension normal, thumb opposition normal, thumb IP flexion normal, thumb ADduction normal and fingers 2-5 ABduction normal; no tenderness and no swelling Psych Affect: normal affect Attitude: cooperative Insight: Good insight present (Psych) Judgement: Good judgement present (Psych) Results AMB Hemoglobin A1c AMB Hemoglobin A1c 8.5 % Last Edit by Florecita Ann MA on 04/02/25 15:24 Coding Level of Care Code Est Pt Level 3 (75340) Diagnoses Bilateral hand pain M79.641; M79.642 Weakness of both hands R29.898 Contact dermatitis due to plants, except food, unspecified contact dermatitis type L25.5 Contact dermatitis type: unspecified Contact dermatitis trigger: non-food plants Type 2 diabetes mellitus with hyperglycemia, without long-term current use of insulin E11.65 Diabetes mellitus type: type 2 Diabetes mellitus halfway insulin use: without halfway use Diabetes mellitus complication status: with hyperglycemia Time Spent (min) 31 Assessment & Plan Assessment & Plan (1) Bilateral hand pain: Code(s): M79.641 - Pain in right hand; M79.642 - Pain in left hand Category: Medical Plan: Patient reports weakness and intermittent pain in his joints. Reports stiffness and some difficulty open his hands from a closed position. Suspect possibly early onset of Dupuytren's or arthritis. We will have the patient complete an x-ray of both hands to further evaluate. (2) Weakness of both hands: Code(s): R29.898 - Other symptoms and signs involving the musculoskeletal system Category: Medical Plan: Patient reports weakness and intermittent pain in his joints. Reports stiffness and some difficulty open his hands from a closed position. Suspect possibly early onset of Dupuytren's or arthritis. We will have the patient complete an x-ray of both hands to further evaluate. (3) Contact dermatitis: Code(s): L25.9 - Unspecified contact dermatitis, unspecified cause Category: Medical Qualifiers: Contact dermatitis type: unspecified Contact dermatitis trigger: non- food plants Qualified Code(s): L25.5 - Unspecified contact dermatitis due to plants, except food Plan: Starting month ago after entering some bushes while retrieving a baseball. His rashes are fading and somewhat dried up, at this time, but continues to be itchy. Betamethasone valerate 0.1% topical b.i.d. p.r.n. 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 This has increased since last checked. Metformin increased from 500 mg b.i.d. to a 1000 mg b.i.d.. Reinforced low sugar/carbohydrate diet. The patient has a follow up appointment on 04/19 for his chronic conditions when this was initially scheduled to be addressed. He is scheduled to complete labs for this appointment for other conditions. We will hold off reordering in his follow up a1c until this appointment. Orders: Orders AMB Hemoglobin A1c Today Z13.9 - Encounter for screening, unspecified XR Hand Agus 2V Today M79.641 - Pain in right hand, M79.642 - Pain in left hand, R29.898 - Other symptoms and signs involving the musculoskeletal system Medications: New betamethasone valerate 0.1% 1 appl topical BID PRN 45 grams 1RF skin irritation Changed From metformin 500 mg PO BID 30 days 60 tabs 3RF To metformin 1,000 mg (2 x 500 mg) PO BID 120 tabs 3RF 30 days
[2025-04-02 14:54] VITALS: BP 140/74; PULSE 96; RESP 18; TEMP 36.1; O2SAT 96; BMI 39.1
--- OUTSIDE RECORDS SUMMARY | 2025-04-02 17:18 | XMS_ITS | Patient Health Record ---
Author Organization [facility] Address [address] [place] [address] Care Team Providers Care Blow Molder Name Role Phone Kristy HERNANDEZ, [facility] Primary Care Provider Unav ailable Jp Larson Unavailable [phone] Reason For Referral No Information Medications Medication SIG (Take, Route, Fr equency, Duration) Notes Start Date End Date Status Z Pac Active Amoxicillin Not-Taki ng Omeprazole 20 MG Orally Once a day Not-Taking Social History Tobacco Use: Social History Observation Description Date Details (start date - stop date) Former Smoker NA - NA Tobacco Use/Smoking Question Answer Notes Are you a: former smoker When did you stop smoking? 06/2016 Additional Findings: Tobacco Non-User Current no n-smoker Alcohol Screen Question Answer Notes Did you have a drink containing alcohol in the p ast year? No Points 0 Interpretation Negative Tobacco use other than smoking: Question Answer Notes Are you an other tobacco user? No Problems Problem Type SNOMED Code ICD Code Onset Dates Problem Status W/U Status Risk Notes Problem Tinea unguium (071566915) Tinea unguium (B35.1) Active confirmed Plan Of Treatment Pending Test Test Name Order Date [id number] NAIL, 6 OR MORE 06/02/2017 [id number] NAIL, 6 OR MORE 09/01/2017 [id number] NAIL, 6 OR MORE 11/03/2017 [id number] NAIL, 6 OR MORE 01/18/2018 [id number] NAIL, 6 OR MORE 11/29/2016 [id number] NAIL, 6 OR MORE 02/28/2017 [id number] Plate 06/02/2017 [id number] Plate 11/29/2016 [id number] Plate 08/07/2018 97374 I&D ABSCESS- SIMPLE,SINGLE 018 Insurance Providers Payer Name Payer Address Payer Phone Subscriber Number Group Number Insured Name Patient Relationship to Insured Coverage Start Date Coverage End Date [facility] All Others [address] [place] [address] [phone] [id number] [phone] [id number] Tomas Andre Self - patient is the insured 6 Medical (General) History Medical History History ICD Code Acid reflux Chicken pox Surgical History Surgery Date(Month/Year) Tendon 1989 Hospitalization History Reason Date(Month/Year) [facility] Colonoscopy 02/08/17
== END 2025-04-02 15:38 | disposition home or self-care (01) ==
LOC: HO.HMCH 14:50
PROVIDERS: PCP Internal Medicine
DX: M79.641 Pain in right hand (principal); E11.65 Type 2 diabetes mellitus with hyperglycemia; M79.642 Pain in left hand; R29.898 Other symptoms and signs involving the musculoskeletal system; L25.5 Unspecified contact dermatitis due to plants, except food

== ENCOUNTER → 2025-04-02 15:46 | Outpatient (BNV) | payer BC, SELFPAY | PROVIDERS: PCP Internal Medicine; Visit Provider Radiology Diagnostic Radiology | DX: M79.641 Pain in right hand (principal) | CPT/HCPCS: 73120 ==

== ENCOUNTER 2025-04-11 08:16 | Outpatient (REF) | payer BC, SELFPAY ==
[2025-04-11 08:37] LABS: MANUAL DIFF FLAG NO
[2025-04-11 08:57] LABS: Hematocrit 43.4 % (42.0-52.0); Hemoglobin 15.3 g/dl (14.0-18.0); Imm Gran Abs Auto 0.01 X10*3/uL (0.00-0.03); Imm Gran Pct Auto 0.2 % (0.0-0.4); Lymphocytes Absolute Auto 2.3 X10*3/uL (1.2-4.9); Mean Corpuscular HGB Conc 35.3 g/dl (31.0-36.0); Mean Corpuscular Hemoglobin 29.8 pg (27.0-33.0); Mean Corpuscular Volume 84.6 fL (80.0-98.0); NRBC Abs Auto 0.000 X10*3/uL (0.0-0.012); NRBC Pct Auto 0.0 /100WBC (0.0-0.2); Platelet Count 145 X10*3/uL (160-400); Red Blood Count 5.13 X10*6/uL (4.60-5.80); White Blood Count 5.6 X10*3/uL (4.8-10.8)
[2025-04-11 09:04] LABS: Appearance Urine Clear; Glucose Urine UA Negative (Negative); PH 6.0 (5.0-9.0); Specific Gravity - Urine 1.010 (1.005-1.025)
--- OUTSIDE RECORDS SUMMARY | 2025-04-11 09:12 | XMS_ITS | Patient Health Record ---
Author Organization [facility] Address [address] [place] [address] Care Team Providers Care Tennis Player Name Role Phone Kristy HERNANDEZ, [facility] Primary Care Provider Unav ailable Jp Larson Unavailable [phone] Reason For Referral No Information Medications Medication [...] W/U Status Risk Notes Problem Tinea unguium (514730173) Tinea unguium (B35.1) Active confirmed Plan Of Treatment Pending Test Test Name Order Date [id number] NAIL, 6 OR MORE 06/02/2017 [id number] NAIL, 6 OR MORE 09/01/2017 [id number] NAIL, 6 OR MORE 11/03/2017 [id number] NAIL, 6 OR MORE 01/18/2018 [id number] NAIL, 6 OR MORE 11/29/2016 [id number] NAIL, 6 OR MORE 02/28/2017 [id number] Plate 06/02/2017 [id number] Plate 11/29/2016 [id number] Plate 08/07/2018 46542 I&D ABSCESS- SIMPLE,SINGLE 018 Insurance Providers Payer Name Payer Address Payer Phone Subscriber Number Group Number Insured Name Patient Relationship to Insured Coverage Start Date Coverage End Date [facility] All Others [address] [place] [address] [phone] [id number] [phone] [id number] Tomas Andre Self - patient is the insured 6 Medical (General) History Medical History History ICD Code Acid reflux Chicken pox Surgical History Surgery Date(Month/Year) Tendon 1989 Hospitalization History Reason Date(Month/Year) [facility] Colonoscopy 02/08/17
[2025-04-11 09:48] LABS: Alanine Aminotransferase 37 U/L (0-40); Albumin Level 4.6 g/dL (3.5-5.0); Alkaline Phosphatase 71 U/L (39-117); Anion Gap 11 (12-20); Aspartate Amino Transferase 27 U/L (5-37); Blood Urea Nitrogen 21 mg/dL (9-16); Calcium 9.6 mg/dL (8.4-10.2); Carbon Dioxide 27 mmol/L (22-29); Chloride 102 mmol/L (96-108); Cholesterol 200 mg/dL (<200); Estimated Glomerular Filt Rate > 60; HDL Cholesterol 36 mg/dL (>40); Potassium 4.1 mmol/L (3.3-5.1); Sodium 136 mmol/L (135-145); Total Protein 7.0 g/dL (6.5-8.0); Triglycerides 255 mg/dL (<150)
== END 2025-04-11 08:17 | disposition home or self-care (01) ==
LOC: HO.LAB 08:16
PROVIDERS: PCP Internal Medicine; Visit Provider Internal Medicine
DX: E11.9 Type 2 diabetes mellitus without complications (principal); R30.0 Dysuria; D64.9 Anemia, unspecified; E78.00 Pure hypercholesterolemia, unspecified; E55.9 Vitamin D deficiency, unspecified
CPT/HCPCS: 36415; 80053; 80061; 81003; 82043; 82306; 82570; 85025

== ENCOUNTER 2025-04-19 10:49 | Outpatient (AMB) | payer BC, SELFPAY ==
[2025-04-19 10:57] VITALS: BP 116/78; PULSE 77; O2SAT 97; BMI 38.8
--- NOTE | 2025-04-19 10:57 | MHC.PC.OV ---
Vital Signs 04/19/25 10:57 Height 5 ft 8.5 in Weight 259 lb 4 oz BMI 38.8 BP 116/78 Blood Pressure Location Lt brachial Position Sitting Pulse 77 Pulse Source Pulse Oximeter Pulse Oximetry (%) 97 Oxygen Delivery Method Room Air Intake Visit Reasons: DM, HTN, hyperlipidemia Surgeon Chief Required: No Accompanied by: Self / Same As Patient Allergies No Known Allergies Allergy (Verified 04/19/25 11:21) Medication List - Last Reconciled 04/19/25 by Karlos Gonzales MD atorvastatin 10 mg PO BEDTIME 90 days betamethasone valerate 0.1% 1 appl topical BID PRN lisinopril 2.5 mg PO DAILY 90 days metformin 1,000 mg (2 x 500 mg) PO BID 30 days omeprazole 20 mg PO DAILY 90 days Tobacco use date assessed: 04/19/25 Dental Screening Dental Screen Date: 04/19/25 Did you have a dental visit in the last 12 months?: Yes Did you have a dental problem in the last 6 months where you did not have access to dental care?: No Was dental information given to patient?: Patient has dentist HPI DM, HTN, hyperlipidemia HPI Details Patient comes in today for his follow up visit States that he feels okay and that his recent pruritic rash has now cleared up completely He still has some residual aching in both hands but states that the pain and stiffness he had a couple of weeks ago have subsided a lot He denies any headaches or dizziness Denies any exertional chest pains or increased SOB No nausea/vomiting, no abdominal pain No change in bowel habits noted He had his follow up labs done a couple of weeks ago - to discuss his results [facility] Medical History (Updated 04/19/25 @ 12:45 by Karlos Gonzales MD) Osteoarthritis of hands, bilateral Mixed hyperlipidemia Essential hypertension Diabetes mellitus GERD without esophagitis Morbid obesity with BMI of 40.0-44.9, adult Exertional dyspnea Surgical History Hx of colonoscopy History of release of tendon Family History Sister Substance use disorder Social History Housing: House Alcohol intake: current Alcohol intake frequency: a few times a month Patient Tobacco Use Status: Never used Tobacco e-Cigarette/Vaping Use: Never Used Second Hand Smoke Exposure: No service: No Current occupational status: employed Current occupation: [employer] Current occupational exposures/hazards: No Cognitive needs: No Hearing needs: No Vision needs: Yes (Reading Glasses) Questionnaire PHQ-9 Over the last 2 weeks, how often have you been bothered by any of the following problems? Depression Screening Interpretation: Positive Depression Screening Follow-up: Follow-up Visit Requested Depression Screening Done: Yes Source: Developed by Drs. Aj Galdamez, Mohini Gray, Daniel Madrid and colleagues, with an educational matt from [employer]. Thrive Questionnaire Date Thrive assessed: 12/06/24 I am a: Patient What is your living situation today?: I have a steady place to live Within the past 12 months, did the food you bought not last and you didn't have the money to get more?: Never true Within the past 12 months, did you worry whether your food would run out before you got money to buy more?: Never true Do you have trouble paying for medicines?: I choose not to answer this question Do you have trouble getting transportation to medical appointments?: No Do you have trouble paying your heating and electricity bill?: Yes Do you have trouble taking care of your child, family member or friend?: No Do you have trouble with day-to-day activities such as bathing, preparing meals, shopping, managing finances, etc.?: No Are you currently unemployed and looking for a job?: No Are you interested in more education?: No Please select the resources that you would like help with: None Currently or been in a relationship where the following occur: No concerns reported THRIVE Score: 1 AUDIT C Alcohol Use Questionnaire (AUDIT-C) 1. How often do you have a drink containing alcohol?: 2-4 times a month 2. How many drinks containing alcohol do you have on a typical day when you are drinking?: 3 or 4 3. How often do you have six or more drinks on one occasion?: Less than monthly Total Score: 4 Score Reviewed/Action Taken: Yes CAROL ANN-7 AMB Questionnaire CAROL ANN-7 Date CAROL ANN - 7 assessed: 04/02/25 Source: Developed by Mohini PastranaW. Isaac, Daniel Madrid and colleagues, with an educational matt from [employer]. Review of Systems Const Denies chills, Denies fatigue, Denies fever(s) and Denies headache(s) ENT Denies dysphagia, Denies dizziness, Denies otalgia, Denies headache(s), Denies neck pain, Denies odynophagia and Denies sore throat Card Denies chest pain, Denies palpitations and Denies dyspnea Resp Denies chest congestion, Denies cough, Denies dyspnea and Denies wheezing GI Denies abdominal pain, Denies constipation, Denies dysphagia, Denies heartburn, Denies diarrhea, Denies nausea, Denies odynophagia and Denies vomiting Denies difficulty urinating, Denies dysuria, Denies nocturia and Denies urinary frequency Musc Denies back pain, Denies neck pain and Reports stiffness (in both hands) Skin/Breast Denies pruritus and Denies rash Neuro Denies dizziness and Denies headache(s) Endo Denies fatigue and Denies palpitations Aller/Immun Denies wheezing Physical exam (Primary Care) Vital Signs: Last Vital Signs Pulse 77 04/19/25 10:57 BP 116/78 04/19/25 10:57 Pulse Ox 97 04/19/25 10:57 Oxygen Delivery Method Room Air 04/19/25 10:57 BMI result Body Mass Index 38.8 Tobacco/Smoking Status: Tobacco use Status Tobacco use date assessed 04/19/25 04/19/25 11:01 Patient Tobacco Use Status Never used Tobacco 04/19/25 11:01 e-Cigarette/Vaping Use Never Used 04/19/25 11:01 Depression Screening Interpretation: Positive Depression Screening Follow-up: Follow-up Visit Requested Thrive Assessment: Date of Thrive Assessment Date Thrive assessed 12/06/24 04/19/25 11:01 Currently or been in a relationship where the following occur: No concerns reported Const General: no acute distress and alert HENMT Ears: TM's normal bilaterally and EAC's normal Throat: Yes posterior oropharynx normal and Yes tonsils normal (no TP congestion) Neck Neck: Yes supple and No lymphadenopathy Thyroid: Thyroid normal Resp Auscultation: clear to auscultation bilaterally, no rales and no wheezes Cardio Rate: regular rate Rhythm: regular rhythm Heart sounds: no murmurs GI Palpation (GI): Soft to palpation and nontender Auscultation: normal bowel sounds General: Yes no CVA tenderness Back/Spine/Pelvis Back: no CVA tenderness Thoracic/Lumbar Spine: thoracic and lumbar spine normal to inspection Skin Rashes: no rashes Extrem Other: (+) mild tenderness noted over a few interphalangeal joints of some fingers on both hands General: Yes no clubbing, cyanosis or edema Results Reviewed Results Reviewed: Laboratory Tests 09/19/24 12/13/24 04/02/25 09:03 10:10 15:21 WBC Hgb Hct Plt Count Sodium Potassium Creatinine Estimated GFR Fasting Glucose Hgb A1c (Clinic) 8.1 H 8.5 H Hemoglobin A1c % 7.4 H Calcium AST ALT Triglycerides Cholesterol LDL Cholesterol, Calc HDL Cholesterol 25-OH Vitamin D Total Ur Specific [place] Urine Protein Urine Glucose (UA) Urine Blood Urine Nitrite Ur Leukocyte Esterase 04/11/25 04/11/25 08:32 08:37 WBC 5.6 Hgb 15.3 Hct 43.4 Plt Count 145 L Sodium 136 Potassium 4.1 Creatinine 0.98 Estimated GFR > 60 Fasting Glucose 144 H Hgb A1c (Clinic) Hemoglobin A1c % Calcium 9.6 AST 27 ALT 37 Triglycerides 255 H Cholesterol 200 H LDL Cholesterol, Calc 113 H HDL Cholesterol 36 L 25-OH Vitamin D Total 30.6 Ur Specific [place] 1.010 Urine Protein Negative Urine Glucose (UA) Negative Urine Blood Negative Urine Nitrite Negative Ur Leukocyte Esterase Negative Coding Level of Care Code Est Pt Level 4 (15973) Diagnoses Type 2 diabetes mellitus with hyperglycemia, without long-term current use of insulin E11.65 Diabetes mellitus type: type 2 Diabetes mellitus roasterman insulin use: without roasterman use Diabetes mellitus complication status: with hyperglycemia Essential hypertension I10 Mixed hyperlipidemia E78.2 GERD without esophagitis K21.9 Primary osteoarthritis of both hands M19.041; M19.042 Osteoarthritis type: primary Morbid obesity with BMI of 40.0-44.9, adult E66.01; Z68.41 Assessment & Plan Assessment & Plan (1) Diabetes mellitus: Code(s): E11.9 - Type 2 diabetes mellitus without complications Category: Medical Qualifiers: Diabetes mellitus type: type 2 Diabetes mellitus prison insulin use: without roasterman use Diabetes mellitus complication status: with hyperglycemia Qualified Code(s): E11.65 - Type 2 diabetes mellitus with hyperglycemia Plan: His in-office HgbA1c was at 8.4% a couple of weeks ago (was previously at 8.1% in November 2024 and HgbA1c was at 7.4% back in August 2024) - goal is at least <7.0% Reinforced diabetic diet Have cautioned patient that his glycemic control is still going in the wrong direction His Metformin was just increased to 1000 mg BID a couple of weeks ago Will recheck his HgbA1c and reassess his glycemic control in 3 months (2) Essential hypertension: Code(s): I10 - Essential (primary) hypertension Category: Medical Plan: Reinforced low sodium diet - goal is systolic BP of 120 mm or less Continue Lisinopril 2.5 mg QD, both for his blood pressure and for renoprotection (3) Mixed hyperlipidemia: Code(s): E78.2 - Mixed hyperlipidemia Category: Medical Plan: Results of his labs done a couple of weeks ago reviewed and discussed with patient - he is advised that his cholesterol numbers are acceptable but as he is a diabetic, should be improved/lowered further Reinforced low cholesterol diet Continue Atorvastatin 10 mg QD Will recheck his labs and fasting lipids in 3 months for follow up (4) GERD without esophagitis: Code(s): K21.9 - Gastro-esophageal reflux disease without esophagitis Category: Medical Plan: Dietary restrictions reinforced Continue Omeprazole 20 mg QD (5) Osteoarthritis of hands, bilateral: Code(s): M19.041 - Primary osteoarthritis, right hand; M19.042 - Primary osteoarthritis, left hand Category: Medical Qualifiers: Osteoarthritis type: primary Qualified Code(s): M19.041 - Primary osteoarthritis, right hand; M19.042 - Primary osteoarthritis, left hand Plan: Have advised patient that his recent hand x-rays revealed (+) mild OA changes in both hands and 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 If his hand symptoms persist, will consider referring him to rheumatology for further management (6) Morbid obesity with BMI of 40.0-44.9, adult: Code(s): E66.01 - Morbid (severe) obesity due to excess calories; Z68.41 - Body mass index [BMI] 40.0-44.9, adult Category: Medical Plan: Reinforced diet/exercise as tolerated/lose weight Plan Follow up in 3 months Orders: Orders Complete Blood Count Auto Diff 3 Months D64.9 - Anemia, unspecified UA CC w/rflx Micro + Cult 3 Months R30.0 - Dysuria Phosphorus 3 Months M25.50 - Pain in unspecified joint, M79.641 - Pain in right hand, M79.642 - Pain in left hand C Reactive Protein 3 Months M25.50 - Pain in unspecified joint, M79.641 - Pain in right hand, M79.642 - Pain in left hand Ferritin 3 Months M11.20 - Other chondrocalcinosis, unspecified site, M25.50 - Pain in unspecified joint, M79.641 - Pain in right hand, M79.642 - Pain in left hand Transferrin 3 Months M25.50 - Pain in unspecified joint, M79.641 - Pain in right hand, M79.642 - Pain in left hand Comprehensive [place]. Panel Fast 3 Months E78.00 - Pure hypercholesterolemia, unspecified Lipid Panel 3 Months E78.00 - Pure hypercholesterolemia, unspecified Hemoglobin A1c 3 Months E11.9 - Type 2 diabetes mellitus without complications Microalbumin, Random (w Creat) 3 Months E11.9 - Type 2 diabetes mellitus without complications TSH reflex Free T4 3 Months E78.00 - Pure hypercholesterolemia, unspecified Vitamin D 25-OH Total 3 Months E55.9 - Vitamin D deficiency, unspecified Magnesium 3 Months E83.42 - Hypomagnesemia, M25.50 - Pain in unspecified joint, M79.641 - Pain in right hand, M79.642 - Pain in left hand Uric Acid 3 Months M25.50 - Pain in unspecified joint, M79.641 - Pain in right hand, M79.642 - Pain in left hand Erythrocyte Sedimentation Rate 3 Months M25.50 - Pain in unspecified joint, M79.641 - Pain in right hand, M79.642 - Pain in left hand
--- OUTSIDE RECORDS SUMMARY | 2025-04-19 12:33 | XMS_ITS | Patient Health Record ---
Author Organization [facility] Address [address] [place] [address] Care Team Providers Care Bridge Instructor Name Role Phone Kristy HERNANDEZ, [facility] Primary Care Provider Unav ailable Jp Larson Unavailable [phone] Reason For Referral No Information Medications Medication [...] W/U Status Risk Notes Problem Tinea unguium ([id number]) Tinea unguium (B35.1) Active confirmed Plan Of Treatment Pending Test Test Name Order Date [id number] NAIL, 6 OR MORE 06/02/2017 [id number] NAIL, 6 OR MORE 09/01/2017 [id number] NAIL, 6 OR MORE 11/03/2017 [id number] NAIL, 6 OR MORE 01/18/2018 [id number] NAIL, 6 OR MORE 11/29/2016 [id number] NAIL, 6 OR MORE 02/28/2017 [id number] Plate 06/02/2017 [id number] Plate 11/29/2016 [id number] Plate 08/07/2018 45982 I&D ABSCESS- SIMPLE,SINGLE 018 Insurance Providers Payer Name Payer Address Payer Phone Subscriber Number Group Number Insured Name Patient Relationship to Insured Coverage Start Date Coverage End Date [facility] All Others [address] [place] [address] [phone] [id number] [phone] [id number] Tomas Andre Self - patient is the insured 6 Medical (General) History Medical History History ICD Code Acid reflux Chicken pox Surgical History Surgery Date(Month/Year) Tendon 1989 Hospitalization History Reason Date(Month/Year) [facility] Colonoscopy 02/08/17
== END 2025-04-19 11:34 | disposition home or self-care (01) ==
LOC: HO.HMCH 10:51
PROVIDERS: PCP Internal Medicine; Visit Provider Internal Medicine
DX: E11.65 Type 2 diabetes mellitus with hyperglycemia (principal); E66.01 Morbid (severe) obesity due to excess calories; Z68.41 Body mass index [BMI] 40.0-44.9, adult; I10 Essential (primary) hypertension; E78.2 Mixed hyperlipidemia; K21.9 Gastro-esophageal reflux disease without esophagitis; M19.041 Primary osteoarthritis, right hand; M19.042 Primary osteoarthritis, left hand

== ENCOUNTER 2025-07-22 07:21 | Outpatient (REF) | payer BC, SELFPAY ==
--- OUTSIDE RECORDS SUMMARY | 2025-07-22 07:25 | XMS_ITS ---
Author Organization Unknown ENCOUNTERS Encounter Performer Location Date Diagnosis Diagnosis Status Outpatient [facility] [address] [address] [id number] [facility] [address] [address] [id number] [facility] *Note: Encounters from your own facility or health system may be excluded. Allergies, Adverse Reactions, Alerts Allergen Type Severity Identification Date Medications Name Date Quantity Days Supplied GPI Number
--- OUTSIDE RECORDS SUMMARY | 2025-07-22 07:25 | XMS_ITS | Patient Health Record ---
Author Organization [facility] Address [address] [place] [address] Care Team Providers Care Html Developer Name Role Phone Kristy HERNANDEZ, [facility] Primary Care Provider Unav ailable Jp Larson Unavailable [phone] Reason For Referral No Information Medications Medication [...] W/U Status Risk Notes Problem Tinea unguium ([id number]) Tinea unguium (B35.1) Active confirmed Plan Of Treatment Pending Test Test Name Order Date [id number] NAIL, 6 OR MORE 06/02/2017 [id number] NAIL, 6 OR MORE 09/01/2017 [id number] NAIL, 6 OR MORE 11/03/2017 [id number] NAIL, 6 OR MORE 01/18/2018 [id number] NAIL, 6 OR MORE 11/29/2016 [id number] NAIL, 6 OR MORE 02/28/2017 [id number] Plate 06/02/2017 [id number] Plate 11/29/2016 [id number] Plate 08/07/2018 93415 I&D ABSCESS- SIMPLE,SINGLE 018 Insurance Providers Payer Name Payer Address Payer Phone Subscriber Number Group Number Insured Name Patient Relationship to Insured Coverage Start Date Coverage End Date [facility] All Others [address] [place] [address] [phone] [id number] Tomas Andre Self - patient is the insured 6 Medical (General) History Medical History History ICD Code Acid reflux Chicken pox Surgical History Surgery Date(Month/Year) Tendon 1989 Hospitalization History Reason Date(Month/Year) [facility] Colonoscopy 02/08/17
[2025-07-22 07:37] LABS: MANUAL DIFF FLAG NO
[2025-07-22 07:45] LABS: Hematocrit 41.4 % (42.0-52.0); Hemoglobin 14.7 g/dl (14.0-18.0); Imm Gran Abs Auto 0.02 X10*3/uL (0.00-0.03); Imm Gran Pct Auto 0.3 % (0.0-0.4); Lymphocytes Absolute Auto 2.7 X10*3/uL (1.2-4.9); Mean Corpuscular HGB Conc 35.5 g/dl (31.0-36.0); Mean Corpuscular Hemoglobin 30.1 pg (27.0-33.0); Mean Corpuscular Volume 84.7 fL (80.0-98.0); NRBC Abs Auto 0.000 X10*3/uL (0.0-0.012); NRBC Pct Auto 0.0 /100WBC (0.0-0.2); Platelet Count 160 X10*3/uL (160-400); Red Blood Count 4.89 X10*6/uL (4.60-5.80); White Blood Count 6.3 X10*3/uL (4.8-10.8)
[2025-07-22 07:50] LABS: Appearance Urine Clear; Glucose Urine UA 100 mg/dL (Negative); PH 5.0 (5.0-9.0); Specific Gravity - Urine 1.025 (1.005-1.025)
[2025-07-22 08:11] LABS: Alanine Aminotransferase 27 U/L (0-40); Albumin Level 4.4 g/dL (3.5-5.0); Alkaline Phosphatase 73 U/L (39-117); Anion Gap 12 (12-20); Aspartate Amino Transferase 24 U/L (5-37); Blood Urea Nitrogen 15 mg/dL (9-16); Calcium 9.3 mg/dL (8.4-10.2); Carbon Dioxide 26 mmol/L (22-29); Chloride 103 mmol/L (96-108); Cholesterol 196 mg/dL (<200); Estimated Glomerular Filt Rate > 60; HDL Cholesterol 34 mg/dL (>40); Magnesium 1.7 mg/dL (1.6-2.6); Potassium 4.3 mmol/L (3.3-5.1); Sodium 137 mmol/L (135-145); Total Protein 6.9 g/dL (6.5-8.0); Triglycerides 211 mg/dL (<150); Uric Acid 4.4 mg/dL (3.4-7.0)
[2025-07-22 08:17] LABS: Microalbum/Creatinine Ratio Ur 20.8 ug/mg cr (<30)
[2025-07-22 08:26] LABS: Ferritin 512 ng/mL (20-250)
[2025-07-22 09:02] LABS: Free T4 (Free Thyroxine) 1.02 ng/dL (0.71-1.85)
[2025-07-23 08:42] LABS: Transferrin 201 mg/dL (188-341)
== END 2025-07-22 07:22 | disposition home or self-care (01) ==
LOC: HO.LAB 07:21
PROVIDERS: PCP Internal Medicine; Visit Provider Internal Medicine
DX: R30.0 Dysuria (principal); M25.50 Pain in unspecified joint; M79.641 Pain in right hand; M79.642 Pain in left hand; M11.20 Other chondrocalcinosis, unspecified site; E78.00 Pure hypercholesterolemia, unspecified; E11.9 Type 2 diabetes mellitus without complications; E83.42 Hypomagnesemia; D64.9 Anemia, unspecified; Z13.21 Encounter for screening for nutritional disorder
CPT/HCPCS: 36415; 80053; 80061; 81003; 82043; 82306; 82570; 82728; 83036; 83735; 84100; 84439; 84443; 84466; 84550; 85025; 85652; 86140

== ENCOUNTER 2025-07-24 12:30 | Outpatient (AMB) | payer BC, SELFPAY ==
[2025-07-24 12:40] VITALS: BP 142/90; PULSE 101; O2SAT 94; BMI 39.5
--- NOTE | 2025-07-24 12:40 | A.OFFPC_ITS ---
Vital Signs 07/24/25 12:40 Height 5 ft 8.5 in Weight 263 lb 6 oz BMI 39.5 BP 142/90 H Blood Pressure Location Lt brachial Position Sitting Pulse 101 H Pulse Source Pulse Oximeter Pulse Oximetry (%) 94 Oxygen Delivery Method Room Air Intake Visit Reasons: DM, hyperlipidemia Flying I Instructor Required: No Accompanied by: Self / Same As Patient Allergies No Known Allergies Allergy (Verified 07/24/25 13:19) Medication List - Last Reconciled 07/24/25 by Karlos Gonzales MD atorvastatin 10 mg PO BEDTIME 90 days betamethasone valerate 0.1% 1 appl topical BID PRN lisinopril 2.5 mg PO DAILY 90 days metformin 1,000 mg (2 x 500 mg) PO BID 30 days omeprazole 20 mg PO DAILY 90 days Tobacco use date assessed: 07/24/25 Dental Screening Dental Screen Date: 07/24/25 Did you have a dental visit in the last 12 months?: Yes Did you have a dental problem in the last 6 months where you did not have access to dental care?: No Was dental information given to patient?: Patient has dentist HPI DM, hyperlipidemia HPI Details Patient is a 59 year old male presenting for follow-up and management of his chronic conditions. - Type 2 diabetes mellitus: The patient' s hemoglobin A1c has increased to 8.6% from 7.4% earlier in the year. - He is currently taking Metformin for h is diabetes - Hypertension: His blood pressure is no [place] to be elevated, which usually goes up corresponding to his weight - He is presently taking Lisinopril for his blood pressure. 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 - Recent lab work for inflammatory arthr itis/joint disease all came back normal. - General Health: The patient recently r ecovered from a mild cold. - He recently purchased multivitamins bu t has not yet started taking them. He denies any headaches or dizziness Denies any exertional chest pains or increased SOB No nausea/vomiting, no abdominal pain No change in bowel habits noted Needs his Metformin Rx refilled today Needs his Metformin Rx refilled He had his follow up labs done a couple of weeks ago - to discuss his result PFSH Medical History Osteoarthritis of hands, bilateral Mixed hyperlipidemia Essential hypertension Diabetes mellitus GERD without esophagitis Morbid obesity with BMI of 40.0-44.9, adult Exertional dyspnea Surgical History Hx of colonoscopy History of release of tendon Family History Sister Substance use disorder Social History Housing: House Alcohol intake: current Alcohol intake frequency: a few times a month Patient Tobacco Use Status: Never used Tobacco e-Cigarette/Vaping Use: Never Used Second Hand Smoke Exposure: No service: No Current occupational status: employed 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 1. Little interest or pleasure in doing things: not at all 2. Feeling down, depressed, or hopeless: not at all 3. Trouble falling or staying asleep, or sleeping too much: not at all 4. Feeling tired or having little energy: not at all 5. Poor appetite or overeating: not at all 6. Feeling bad about yourself - or that you are a failure or have let yourself or your family down: not at all 7. Trouble concentrating on things, such as reading the newspaper or watching television: not at all 8. Moving or speaking so slowly that other people could have noticed. Or the opposite - being so fidgety or restless that you have been moving around a lot more than usual: not at all 9. Thoughts that you would be better off or of hurting yourself in some way: not at all Total score: 0 Depression Screening Interpretation: Negative Depression Screening Done: Yes 88280 - PHQ-9 Billing: Yes Source: Developed by Drs. Aj Galdamez, Mohini Gray, Daniel Madrid and colleagues, with an educational matt from [employer]. Thrive Questionnaire Date Thrive assessed: 07/24/25 I am a: Patient What is your living situation today?: I have a steady place to live Within the past 12 months, did the food you bought not last and you didn't have the money to get more?: Never true Within the past 12 months, did you worry whether your food would run out before you got money to buy more?: Never true Do you have trouble paying for medicines?: I choose not to answer this question Do you have trouble getting transportation to medical appointments?: No Do you have trouble paying your heating and electricity bill?: Yes Do you have trouble taking care of your child, family member or friend?: No Do you have trouble with day-to-day activities such as bathing, preparing meals, shopping, managing finances, etc.?: No Are you currently unemployed and looking for a job?: No Are you interested in more education?: No Currently or been in a relationship where the following occur: No concerns repor [place] THRIVE Score: 1 AUDIT C Alcohol Use Questionnaire (AUDIT-C) 1. How often do you have a drink containing alcohol?: 2-4 times a month 2. How many drinks containing alcohol do you have on a typical day when you are drinking?: 3 or 4 3. How often do you have six or more drinks on one occasion?: Less than monthly Total Score: 4 Score Reviewed/Action Taken: Yes CAROL ANN-7 AMB Questionnaire CAROL ANN-7 Date CAROL ANN - 7 assessed: 07/24/25 Feeling nervous, anxious, or on edge: 0 = Not at all Not being able to stop or control worryin = Not at all Worrying too much about different things: 0 = Not at all Trouble relaxin = Not at all Being so restless that it is hard to sit still: 0 = Not at all Becoming easily annoyed or irritable: 0 = Not at all Feeling afraid as if something awful might happen: 0 = Not at all Total CAROL ANN-7 score (0-4 normal; 5-9 mild; 10-14 moderate; 15-21 severe): 0 Source: Developed by Drs. Aj Galdamez, Mohini Gray, Daniel Madrid and colleagues, with an educational matt from [employer]. Review of Systems Const Denies chills, Denies fatigue, Denies fever(s) and Denies headache(s) ENT Denies dysphagia, Denies dizziness, Denies otalgia, Denies headache(s), Denies neck pain, Denies odynophagia and Denies sore throat Card Denies chest pain, Denies palpitations and Denies dyspnea Resp Denies chest congestion, Denies cough, Denies dyspnea and Denies wheezing GI Denies abdominal pain, Denies constipation, Denies dysphagia, Denies heartburn, Denies diarrhea, Denies nausea, Denies odynophagia and Denies vomiting Denies difficulty urinating, Denies dysuria, Denies nocturia and Denies urinary frequency Musc Denies back pain, Denies neck pain and Reports stiffness (in both hands) Skin/Breast Denies pruritus and Denies rash Neuro Denies dizziness and Denies headache(s) Endo Denies fatigue and Denies palpitations Aller/Immun Denies wheezing Physical exam (Primary Care) Vital Signs: Last Vital Signs Pulse 101 H 07/24/25 12:40 BP 142/90 H 07/24/25 12:40 Pulse Ox 94 07/24/25 12:40 Oxygen Delivery Method Room Air 07/24/25 12:40 BMI result Body Mass Index 39.5 Tobacco/Smoking Status: Tobacco use Status Tobacco use date assessed 07/24/25 07/24/25 12:45 Patient Tobacco Use Status Never used Tobacco 07/24/25 12:45 e-Cigarette/Vaping Use Never Used 07/24/25 12:45 PHQ-9: PHQ-9 Score PHQ-9: Total score 0 07/24/25 13:24 Depression Screening Interpretation: Negative Thrive Assessment: Date of Thrive Assessment Date Thrive assessed 07/24/25 07/24/25 12:45 Currently or been in a relationship where the following occur: No concerns reported Const General: no acute distress and alert HENMT Ears: TM's normal bilaterally and EAC's normal Throat: Yes posterior oropharynx normal and Yes tonsils normal (no TP congest ion) Neck Neck: Yes supple and No lymphadenopathy Thyroid: Thyroid normal Resp Auscultation: clear to auscultation bilaterally, no rales and no wheezes Cardio Rate: regular rate Rhythm: regular rhythm Heart sounds: no murmurs GI Palpation (GI): Soft to palpation and nontender Auscultation: normal bowel sounds General: Yes no CVA tenderness Back/Spine/Pelvis Back: no CVA tenderness Thoracic/Lumbar Spine: thoracic and lumbar spine normal to inspection Skin Rashes: no rashes Extrem Other: (+) mild tenderness noted over a few interphalangeal joints of some fingers on both hands General: Yes no clubbing, cyanosis or edema Results Reviewed Results Reviewed: Laboratory Tests 07/22/25 07/22/25 07:26 07:35 WBC 6.3 Hgb 14.7 Hct 41.4 L Plt Count 160 ESR 10 Sodium 137 Potassium 4.3 Creatinine 0.80 Estimated GFR > 60 Fasting Glucose 223 H Hemoglobin A1c % 8.6 H Uric Acid 4.4 Calcium 9.3 Magnesium 1.7 Ferritin 512 H AST 24 ALT 27 C-Reactive Protein 0.69 H Triglycerides 211 H Cholesterol 196 LDL Cholesterol, Calc 120 H HDL Cholesterol 34 L 25-OH Vitamin D Total 26.7 L TSH 6.63 H Free T4 1.02 Ur Specific [place] 1.025 Urine Protein Trace Urine Glucose (UA) 100 H Urine Blood Negative Urine Nitrite Negative Ur Leukocyte Esterase Negative Microalb/Creat Ratio 20.8 Coding Level of Care Code Est Pt Level 4 (70333) Add On Problem Visit Only Diagnoses Type 2 diabetes mellitus with hyperglycemia, without long-term current use of insulin E11.65 Diabetes mellitus complication status: with hyperglycemia Diabetes 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 operator insulin use: without terminal press operator use Diabetes mellitus type: type 2 Essential hypertension I10 Mixed hyperlipidemia E78.2 GERD without esophagitis K21.9 Primary osteoarthritis of both hands M19.041; M19.042 Osteoarthritis type: primary Morbid obesity with BMI of 40.0-44.9, adult E66.01; Z68.41 Additional Codes PHQ-9 - 54725 - PHQ-9 Billing: Yes ([id number]) Assessment & Plan Assessment & Plan (1) Diabetes mellitus: Code(s): E11.9 - Type 2 diabetes mellitus without complications Category: Medical Qualifiers: Diabetes mellitus complication status: with hyperglycemia Diabetes 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 operator insulin use: without terminal press operator use Diabetes mellitus type: type 2 Qualified Code(s): E11.65 - Type 2 diabetes mellitus with hyperglycemia Plan: His HgbA1c was at 8.6% on his labs done a few days ago (in-office HgbA1c was previously at 8.4% a few months ago) - goal is at least <7.0% Reinforced diabetic diet Have cautioned patient again that his diabetes is not controlled at all - he admits to poor compliance with his diet over the past several months, including during the holidays Will continue him on Metformin 1000 mg BID for now (Rx refilled) but have advised him that we will likely need to start him on some additional Rx for his diabetes if he still cannot get it back under control Will recheck his HgbA1c and reassess his glycemic control in 3 months (2) Essential hypertension: Code(s): I10 - Essential (primary) hypertension Category: Medical Plan: Reinforced low sodium diet - goal is systolic BP of 120 mm or less Continue Lisinopril 2.5 mg QD, both for his blood pressure and for renoprotection (3) Mixed hyperlipidemia: Code(s): E78.2 - Mixed hyperlipidemia Category: Medical Plan: Results of his labs done a couple of days ago reviewed and discussed with patient - have advised him that his cholesterol numbers have also increased from previous. likely due to his poor diabetes control Reinforced low cholesterol diet Continue Atorvastatin 10 mg QD for now Will recheck his labs and fasting lipids in 3 months for follow up (4) GERD without esophagitis: Code(s): K21.9 - Gastro-esophageal reflux disease without esophagitis Category: Medical Plan: Dietary restrictions reinforced Continue Omeprazole 20 mg QD (5) Osteoarthritis of hands, bilateral: Code(s): M19.041 - Primary osteoarthritis, right hand; M19.042 - Primary osteoarthritis, left hand Category: Medical Qualifiers: Osteoarthritis type: primary Qualified Code(s): M19.041 - Primary osteoarthritis, right hand; M19.042 - Primary osteoarthritis, left hand Plan: Have advised patient that his recent hand x-rays revealed (+) mild OA changes in both hands and 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 His recent labs done came back negative on his inflammatory markers If his hand symptoms persist, will consider referring him to rheumatology for further management (6) Morbid obesity with BMI of 40.0-44.9, adult: Code(s): E66.01 - Morbid (severe) obesity due to excess calories; Z68.41 - Body mass index [BMI] 40.0-44.9, adult Category: Medical Plan: Reinforced diet/exercise as tolerated/lose weight Plan Follow up in 3 months Orders: Orders Microalbumin, Random (w Creat) 3 Months E11.9 - Type 2 diabetes mellitus without complications UA CC w/rflx Micro + Cult 3 Months R30.0 - Dysuria Vitamin D 25-OH Total 3 Months E55.9 - Vitamin D deficiency, unspecified Uric Acid 3 Months M11.20 - Other chondrocalcinosis, unspecified site Hemoglobin A1c 3 Months E11.9 - Type 2 diabetes mellitus without complications Complete Blood Count Auto Diff 3 Months D64.9 - Anemia, unspecified Comprehensive [place]. Panel Fast 3 Months E78.00 - Pure hypercholesterolemia, unspecified Lipid Panel 3 Months E78.00 - Pure hypercholesterolemia, unspecified TSH reflex Free T4 3 Months E78.00 - Pure hypercholesterolemia, unspecified Medications: Refilled metformin 1,000 mg (2 x 500 mg) PO BID 120 tabs 3RF 30 days
--- OUTSIDE RECORDS SUMMARY | 2025-07-24 14:08 | XMS_ITS | Patient Health Record ---
Author Organization [facility] Address [address] [place] [address] Care Team Providers Care Customer Engagement Representative Name Role Phone Kristy HERNANEDZ, [facility] Primary Care Provider Unav ailable Jp Larson Unavailable [phone] Reason For Referral No Information Medications Medication [...] W/U Status Risk Notes Problem Tinea unguium ([id number]) Tinea unguium (B35.1) Active confirmed Plan Of Treatment Pending Test Test Name Order Date [id number] NAIL, 6 OR MORE 06/02/2017 [id number] NAIL, 6 OR MORE 09/01/2017 [id number] NAIL, 6 OR MORE 11/03/2017 [id number] NAIL, 6 OR MORE 01/18/2018 [id number] NAIL, 6 OR MORE 11/29/2016 [id number] NAIL, 6 OR MORE 02/28/2017 [id number] Plate 06/02/2017 [id number] Plate 11/29/2016 [id number] Plate 08/07/2018 19404 I&D ABSCESS- SIMPLE,SINGLE 018 Insurance Providers Payer Name Payer Address Payer Phone Subscriber Number Group Number Insured Name Patient Relationship to Insured Coverage Start Date Coverage End Date [facility] [employer] Others [address] [place] [address] [phone] [id number] Tomas Andre Self - patient is the insured 6 Medical (General) History Medical History History ICD Code Acid reflux Chicken pox Surgical History Surgery Date(Month/Year) Tendon 1989 Hospitalization History Reason Date(Month/Year) [facility] Colonoscopy 02/08/17
--- OUTSIDE RECORDS SUMMARY | 2025-07-24 14:09 | XMS_ITS ---
Author Organization Unknown ENCOUNTERS Encounter Performer Location Date Diagnosis Diagnosis Status Outpatient [facility] [address] [address] [id number] [facility] [address] [address] [id number] [facility] *Note: Encounters from your own facility or health system may be excluded. Allergies, Adverse Reactions, Alerts Allergen Type Severity Identification Date Medications Name Date Quantity Days Supplied GPI Number
== END 2025-07-24 13:27 | disposition home or self-care (01) ==
LOC: HO.HMCH 12:31
PROVIDERS: PCP Internal Medicine; Visit Provider Internal Medicine
DX: E66.01 Morbid (severe) obesity due to excess calories (principal); Z68.41 Body mass index [BMI] 40.0-44.9, adult; M19.041 Primary osteoarthritis, right hand; M19.042 Primary osteoarthritis, left hand

== ENCOUNTER → 2025-07-24 12:30 | Outpatient (BNVA) | payer BC, SELFPAY | PROVIDERS: PCP Internal Medicine; Visit Provider Internal Medicine | DX: Z13.31 Encounter for screening for depression (principal); Z13.39 Encounter for screening examination for other mental health and behavioral disorders | CPT/HCPCS: 96127 ==